=== PATIENT | female | born 1990 | race Caucasian/White ===

== ENCOUNTER → 2019-07-05 10:27 | Outpatient (CLI) | payer MEDICAID, SELFPAY ==
--- NOTE | 2019-07-05 10:29 | CA_ITS ---
APPROVED REPORT Bilateral Lower Extremity Venous Study for DVT. Software Consultant: MIKIE FlanaganT Indications Lower Extremity Pain: Bilateral Lower Extremity Edema: Bilateral Current Smoker REDNESS,PAIN PANTERA CALFS Vein Imaging CFV (R): compressive, spontaneous, phasic, augmentation FEM (R): compressive, spontaneous, phasic, augmentation POP (R): compressive, spontaneous, phasic, augmentation PTV (R): Compressible GSV (R): Compressible Peroneals (R):Compressible GAS (R): Compressible CFV (L): compressive, spontaneous, phasic, augmentation FEM (L): compressive, spontaneous, phasic, augmentation POP (L): compressive, spontaneous, phasic, augmentation PTV (L): Compressible GSV (L): Compressible Peroneals (L):Compressible GAS (L): Compressible Conclusion Study suggests no evidence of DVT of the billateral lower extremities. Study suggests no evidence of SVT of the bilateral lower extremities. Critical Notification Physician Notified Date: 07/05/2019 Time: 11:01 Physician Name: Ahmet's office Electronically signed by : Willard Holden MD 07/05/2019 16:14:42
== END ==
PROVIDERS: PCP Emergency Medicine; Visit Provider Nurse Practitioner Family
DX: M79.605 Pain in left leg (principal); M79.604 Pain in right leg; R60.9 Edema, unspecified
CPT/HCPCS: 93970

== ENCOUNTER 2019-10-07 17:09 | Emergency (ER) | payer MEDICAID, SELFPAY ==
[2019-10-07 17:14] VITALS: BP 134/70; PULSE 84; RESP 16; TEMP 36.8; O2SAT 98; BMI 27.3
[2019-10-07 17:23] VITALS: BP 134/70; PULSE 84; RESP 16; TEMP 36.8; O2SAT 98; BMI 27.3
--- NOTE | 2019-10-07 18:35 | HMH.EDUTC ---
[facility] [place] Impression: Muscle strain Disposition: Home, Self-Care Condition on Discharge: Good Instructions: Muscle Strain, DI for Muscle Strain Additional Instructions: *Etodolac gissell 6 hours with meal as needed for pain/inflammation *Not additional anti-inflammatory like motrin, aleve, advil with the above amount of Etodolac. You can still take Tylenol every 4 hours as needed if you need something else for pain *Ice 20 minutes every 2 hours for the first 48 hours after the initial injury followed by moist heat every 20 minutes 3-4 times a day to affected area Over the counter Muscle rubs may help *Keep this area active, no movement leads to more stiffness, However take it easy and avoid heavy lifting pushing or pulling *Follow up with you family doctor if no improvement for further treatment Return if needed Straight to ER if any life threatening symptoms Prescriptions: Etodolac [Etodolac 200mg Cap*] 200 mg PO Q6H PRN #10 cap PRN Reason: Moderate Pain Transmission Status: Pending to [facility] Referrals: Mahamed Hunter MD [Primary Care Provider] - As needed Time of Disposition: 18:41 Medical Decision Making - Ben Inquiry Pt receiving controlled substance: No Ben was queried for this patient: No Vital Signs: 10/07/19 17:14 10/07/19 17:23 Temperature 98.2 F 98.2 F Temperature Source Oral Oral Pulse Rate [Right] 84 84 Respiratory Rate 16 16 Blood Pressure [Right Arm] 134/70 134/70 Blood Pressure Mean [Right Arm] 91 91 Blood Pressure Source [Right Arm] Automatic Cuff Automatic Cuff Blood Pressure Position [Right Arm] Sitting Sitting 02 Sat by Pulse Oximetry 98 98 Oxygen Delivery Method Room Air Room Air [facility] [place] - General Stated complaint: L side pain, pain under R breast Time Seen by Provider: 10/07/19 18:36 Mode of Arrival: Ambulatory Source of Information: Patient Limitations: No Limitations Description of Symptoms (Recalled from Triage Doc. by RN): Pt c/o left sided pain that has been ongoing for months. 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 she has pain in her left side just below ribs like she has pulled something States that yesterday she unloaded truck and pain started again and has kept her up most of the night and she was unable to work today States that pain is better now but she had to come in to get a note for work - Related Data Home Medications Medication Instructions Recorded Confirmed glecaprevir 100 mg-pibrentasvir 40 3 tab PO DAILY 07/05/19 07/05/19 mg tablet Previous Rx's Medication Instructions Recorded Etodolac [Etodolac 200mg Cap*] 200 mg PO Q6H PRN #10 cap 10/07/19 Allergies Allergy/AdvReac Type Severity Reaction Status Date / Time No Known Allergies Allergy Unverified 07/05/19 09:06 - Worker's Comp Is this a Worker's Comp case?: No [facility] History - Hepatitis A Screen Drug use history?: No High risk sexual behaviors?: No History of sexually transmitted infection?: No Currently employed?: No Childcare worker?: No Do you have indoor plumbing?: Yes Do you have electricity?: Yes Attestation statement:: This patient has been screened for Hepatitis A risk factors. I have reviewed the patient's past medical history: Yes Medical History: Reports:: Hepatitis Denies:: Cancer, Diabetes Mellitus Type 1, Diabetes Mellitus Type 2, Internal Pacemaker, MRSA Laterality Cases: Bilateral: Tonsillectomy Other Surgeries: Yes: Tub
[2019-10-07 18:51] VITALS: BP 134/70; PULSE 84; RESP 16; TEMP 36.8; O2SAT 98
== END 2019-10-07 18:53 | disposition home or self-care (01) ==
PROVIDERS: Emergency Provider Nurse Practitioner; PCP Emergency Medicine
DX: S23.421A Sprain of chondrosternal joint, initial encounter (principal); X50.0XXA Overexertion from strenuous movement or load, initial encounter; Y92.89 Other specified places as the place of occurrence of the external cause; B19.20 Unspecified viral hepatitis C without hepatic coma; F17.210 Nicotine dependence, cigarettes, uncomplicated; F19.11 Other psychoactive substance abuse, in remission; Z90.09 Acquired absence of other part of head and neck
CPT/HCPCS: 99201

== ENCOUNTER → 2019-11-26 14:09 | Outpatient (CLI) | payer MEDICAID, SELFPAY ==
--- NOTE | 2019-11-26 14:16 | MM_ITS ---
PROCEDURE: MM DIG MAMM DX UNILAT RT CAD Digital Breast Tomosynthesis Included CLINICAL INDICATION: RT BREAST LUMP COMPARISON: US US BREAST RT COMPLETE from 11/26/2019 TECHNIQUE: Standard CC and MLO images and 3D Tomosynthesis was obtained. R2 CAD reviewed. FINDINGS: Palpable nodule is reported at the upper inner right breast. A marker is placed at this region. No malignant appearing mass or malignant-appearing microcalcification. Tomogram images do not demonstrate any spur specific abnormality Right breast ultrasound: No cystic or solid lesions evident. IMPRESSION: Unremarkable right-sided mammogram and right breast ultrasound. BI-RAD Category: 1 Negative FOLLOW-UP: Correlation with physical exam is needed. A negative mammogram and negative ultrasound does not exclude the possibility of malignancy. If there is indeed a palpable nodule then, it should be managed on a clinical basis. (A letter has been sent to the patient regarding results of the study.) Dictated by: Willard Holden MD 11/29/2019 11:44 Willard Holden MD in [place] 11/29/2019 11:44
== END ==
PROVIDERS: PCP Emergency Medicine; Visit Provider Physician Assistant
DX: N63.12 Unspecified lump in the right breast, upper inner quadrant (principal)
CPT/HCPCS: 76641; 77061; 77065; G0279

== ENCOUNTER 2019-12-25 13:02 | Emergency (ER) | payer MEDICAID, SELFPAY ==
[2019-12-25 13:16] VITALS: BP 130/85; PULSE 106; RESP 18; TEMP 37.4; O2SAT 99; BMI 27.3
--- NOTE | 2019-12-25 13:21 | HMH.EDUTC ---
[facility] [place] Disposition Clinical Impression: Encounter for laboratory testing for COVID-19 virus Otitis media Qualifiers: Otitis media type: unspecified Laterality: bilateral Qualified Code(s): H66.93 - Otitis media, unspecified, bilateral Disposition: Home, Self-Care Condition on Discharge: Good Instructions: Middle Ear Infection, Amoxicillin Additional Instructions: *Monitor Temp, Over the counter Motrin or Tylenol as directed/as needed Tylenol every 4 hours and Motrin every 6 hours (as long as your family doctor has told you that you can take it) for fever or pain. and straight to ER if unable to lower temp less than 101.0 after medication given *Warm salt water gargles may help to soothe the throat *Throat Lozenges *Warm fluids like tea with honey may help to soothe the throat *Sleep elevated *Humidifier/Vaporizer *Flonase 2 sprays in each nostril daily but be aware that it may take 2-3 days before you notice improvement Follow up IMMEDIATELY for new or worsening symptoms or no Noticeable improvement over the next 48-72 hours. 911 for difficulty breathing or swallowing Take medication as prescribed You was tested for today for COVID19 your test result should be back in the next 24-48 hours, you may call to the [facility] tomorrow to see if your test results are back and the result [phone] You was given a handout with instructions for Self Quarantine and Self isolation for while you wait on test results and what to do if they are positive If you are positive the Health Dept will be contacting you also Prescriptions: Amoxicillin [Amoxicillin 875MG Tab] 875 mg PO Q12H #20 tab Transmission Status: Pending to [facility] Fluticasone Propionate [Flonase 50mcg nasal spray 16gm] 1 spr NS DAILY #1 bottle Transmission Status: Pending to [facility] Referrals: Jonatan Weaver APRN [Primary Care Provider] - As needed Forms: Work/School Release Time of Disposition: 13:35 Medical Decision Making - Ben Inquiry Pt receiving controlled substance: No Ben was queried for this patient: No Vital Signs: 12/25/19 13:16 12/25/19 13:23 Temperature 99.4 F 99.4 F Temperature Source Oral Pulse Rate 106 H Pulse Rate [Left] 106 H Respiratory Rate 18 18 Blood Pressure 130/85 Blood Pressure [Right Arm] 130/85 Blood Pressure Mean [Right Arm] 100 Blood Pressure Source [Right Arm] Automatic Cuff Blood Pressure Position [Right Arm] Sitting 02 Sat by Pulse Oximetry 99 Oxygen Delivery Method Room Air - Lab Data Lab results reviewed: Yes: I reviewed the patient's lab results. Orders (Tests/Meds): ORDERS Category Date Time Status Covid-19 Nasal PCR Sendout [facility] Stat Lab 12/25/19 13:16 Ordered [facility] [place] HPI - General Stated complaint: achy, feels bad Time Seen by Provider: 12/25/19 13:21 Mode of Arrival: Ambulatory Source of Information: Patient Limitations: No Limitations Description of Symptoms (Recalled from Triage Doc. by RN): Body aches, chills, fatigue x 2 days HEENT Symptoms (Recalled from RN notes): No Resp Symptoms (Recalled from RN notes): No Skin Symptoms (Recalled from RN notes): No MS Symptoms (Recalled from RN notes): Yes (fatigue) Functional Status (Recalled from RN notes): stable - History of Present Illness Provider Complaint: Patient states that she has been having body aches, chills, fatigue and pain and pressure in both ears for the last 2-3 days States that she felt like she had a fever all night and today when she got up she was feeling worse so she come in to get checked Denies known exposure to COVID - Related Data Previous Rx's Medication Instructions Recorded Amoxicillin [Amoxicillin 875MG 875 mg PO Q12H #20 tab 12/25/19 Tab] Fluticasone Propionate [Flonase 1 spr NS DAILY #1 bottle 12/25/19 50mcg nasal spray 16gm] Allergies Allergy/AdvReac Type Severity Reaction Status Date / Time No Known Allergies Allergy Verified 12/25/19 13:22 - Worker's
[2019-12-25 13:23] VITALS: BP 130/85; PULSE 106; RESP 18; TEMP 37.4; O2SAT 99
[2019-12-25 20:23] LABS: UTC Influenza A Antigen Negative (Negative)
[2019-12-25 20:24] LABS: UTC Influenza B Antigen Negative (Negative)
[2019-12-26 11:12] LABS: Adenovirus,PCR Not Detected (NotDetected); Bordetella Pertussis Not Detected (NotDetected); Chlamydophila Pneumoniae, PCR Not Detected (NotDetected); Coronavirus 19, PCR Not Detected (NotDetected); Coronavirus 229E Not Detected (NotDetected); Coronavirus NL63 Not Detected (NotDetected); Coronavirus OC43 Not Detected (NotDetected); Coronovirus HKU1,PCR Not Detected (NotDetected); Human Metapneumovirus Not Detected (NotDetected); Influenza A, PCR Not Detected (NotDetected); Influenza AH1, 2009 Not Detected (NotDetected); Influenza AH1, PCR Not Detected (NotDetected); Influenza AH3,PCR Not Detected (NotDetected); Influenza B, PCR Not Detected (NotDetected); Mycoplasma Pneumoniae, PCR Not Detected (NotDetected); Parainfluenza 1, PCR Not Detected (NotDetected); Parainfluenza 2, PCR Not Detected (NotDetected); Parainfluenza 3, PCR Not Detected (NotDetected); Parainfluenza 4, PCR Not Detected (NotDetected); Respiratory Syncytial Virus Not Detected (NotDetected); Rhinovirus/Enterovirus Not Detected (NotDetected)
== END 2019-12-25 14:24 | disposition home or self-care (01) ==
PROVIDERS: Emergency Provider Nurse Practitioner; PCP Nurse Practitioner Family
DX: Z20.828 Contact with and (suspected) exposure to other viral communicable diseases (principal); H66.93 Otitis media, unspecified, bilateral
CPT/HCPCS: 87581; 87633; 87798; 87804; 99202; U0003; U0004

== ENCOUNTER 2020-04-23 09:48 | Emergency (ER) | payer MEDICAID, SELFPAY ==
[2020-04-23 09:48] VITALS: BP 152/89; PULSE 96; RESP 18; TEMP 36.6; O2SAT 100; BMI 26.6
[2020-04-23 09:55] VITALS: BP 152/89; PULSE 96; RESP 18; TEMP 36.6; O2SAT 100; BMI 26.6
--- NOTE | 2020-04-23 10:23 | HMH.EDUTC ---
[facility] – [place] Disposition Clinical Impression: Exposure to COVID-19 virus Otitis media Qualifiers: Otitis media type: unspecified Laterality: right Qualified Code(s): H66.91 - Otitis media, unspecified, right ear Disposition: Home, Self-Care Condition on Discharge: Good Instructions: Middle Ear Infection, DI for Otitis Media (Middle Ear Infection)-Child, Amoxicillin, Fluticasone Nasal [place], DI for COVID-19 (Suspected or Confirmed ) Additional Instructions: *Monitor Temp, Over the counter Motrin or Tylenol as directed/as needed Tylenol every 4 hours and Motrin every 6 hours (as long as your family doctor has told you that you can take it) for fever or pain. and straight to ER if unable to lower temp less than 101.0 after medication given *Warm salt water gargles may help to soothe the throat *Throat Lozenges *Warm fluids like tea with honey may help to soothe the throat *Sleep elevated *Humidifier/Vaporizer *Flonase 2 sprays in each nostril daily but be aware that it may take 2-3 days before you notice improvement Your throat swab was sent for culture. Those results are typically sent to your primary care. Be sure to follow up in 2-3 days with your family doctor/primary care physician if no improvement so they can review those result and treat if necessary. If you don?t have a primary care doctor, I recommend you get one but in the mean time, you will have to return to a walk in clinic Follow up IMMEDIATELY for new or worsening symptoms or no Noticeable improvement over the next 48-72 hours. 911 for difficulty breathing or swallowing You were tested for today for COVID19 your test result should be back in the next 24-48 hours, you may call to the [facility] to see if your test results are back in the next 48 hours [phone] [facility] hours are 9am-9pm You was given a handout with instructions for Self Quarantine and Self isolation for while you wait on test results and what to do if they are positive If you are positive the Health Dept will be contacting you also Prescriptions: Amoxicillin [Amoxicillin 875MG Tab] 875 mg PO Q12H #20 tab Transmission Status: Pending to [facility] Fluticasone Propionate [Flonase 50mcg nasal spray 16gm] 1 spr NS DAILY #1 bottle Transmission Status: Pending to [facility] Referrals: Mahamed Hunter MD [Primary Care Provider] - As needed Forms: Work/School Release Time of Disposition: 10:30 Medical Decision Making - Ben Inquiry Pt receiving controlled substance: No Ben was queried for this patient: No Vital Signs: 04/23/20 09:48 04/23/20 09:55 Temperature 97.8 F 97.8 F Temperature Source Oral Oral Pulse Rate [Left Radial] 96 H 96 H Respiratory Rate 18 18 Blood Pressure [Right Arm] 152/89 H 152/89 H Blood Pressure Mean [Right Arm] 110 110 Blood Pressure Source [Right Arm] Automatic Cuff Automatic Cuff Blood Pressure Position [Right Arm] Sitting Sitting 02 Sat by Pulse Oximetry 100 100 Oxygen Delivery Method Room Air Room Air - Lab Data Lab results reviewed: Yes: I reviewed the patient's lab results. Lab Results 04/23/20 10:26: Strep Scn Rapid Clinic Negative Orders (Tests/Meds): ORDERS Category Date Time Status Covid-19 Nasal PCR ([facility]) Routine Lab 04/23/20 10:26 Ordered Strep Screen Confirmation Stat Micro 04/23/20 10:26 Received [facility] [place] HPI - General Stated complaint: covid exposes, headache and sore throat Time Seen by Provider: 04/23/20 10:23 Mode of Arrival: Ambulatory Source of Information: Patient Limitations: No Limitations Description of Symptoms (Recalled from Triage Doc. by RN): PATIENT C/O HEADACHE SINCE TUESDAY AND SORE THROAT SINCE YESTERDAY. REPORTS EXPOSURE TO COVID HEENT Symptoms (Recalled from RN notes): Yes Resp Symptoms (Recalled from RN notes): No Skin Symptoms (Recalled from RN notes): No MS Symptoms (Recalled from RN notes): No Functional Status (Recalled from RN notes): WNL - History of Present Illness Provider Complaint:
[2020-04-23 10:28] LABS: UTC Strep Screen (Rapid) Negative (Negative)
[2020-04-23 10:33] VITALS: BP 152/89; PULSE 96; RESP 18; TEMP 36.6; O2SAT 100
== END 2020-04-23 10:36 | disposition home or self-care (01) ==
PROVIDERS: Emergency Provider Nurse Practitioner; PCP Emergency Medicine
DX: Z20.822 Contact with and (suspected) exposure to COVID-19 (principal); H66.91 Otitis media, unspecified, right ear; F19.11 Other psychoactive substance abuse, in remission
CPT/HCPCS: 87880; 99202; G0463; U0003

== ENCOUNTER → 2020-05-20 10:16 | Outpatient (CLI) | payer MEDICAID, SELFPAY ==
--- NOTE | 2020-05-20 10:21 | XR_ITS ---
PROCEDURE: XR CHEST 2V CLINICAL HISTORY: tob use/chest pain COMPARISON: No exams were available for comparison FINDINGS: The cardiomediastinal silhouette and pulmonary vascularity are within normal limits. The lungs are clear without infiltrates, suspicious nodules, or pleural effusions. No acute bony abnormalities. IMPRESSION: No acute findings. Dictated by: Willard Holden MD 05/20/2020 12:42 Willard Holden MD in [place] 05/20/2020 12:42
[2020-05-20 11:25] LABS: Basophils % 0.5 % (0.1-2.0); Eosinophils # 0.1 K/mm3 (0.0-0.4); Eosinophils % 1.8 % (0.1-12.0); Hematocrit 43.8 % (37.0-47.0); Hemoglobin 14.8 g/dL (12.2-16.2); Lymphocytes # 2.4 K/mm3 (0.7-4.5); Lymphocytes % 37.9 % (10-50); Mean Corpuscular HGB Conc 33.7 g/dL (31.8-35.4); Mean Corpuscular Hemoglobin 32.2 pg (27.0-31.2); Mean Corpuscular Volume 95.6 fl (81-99); Mean Platelet Volume 7.6 fl (7.4-10.4); Monocytes # 0.3 K/mm3 (0.1-1.0); Monocytes % 4.8 % (1.7-9.3); Neutrophils # 3.5 K/mm3 (1.8-7.8); Neutrophils % 55.1 % (37.0-80.0); Platelet Count 247 K/mm3 (142-424); Red Blood Count 4.58 M/mm3 (4.20-5.40); Red Cell Distribution Width 13.4 % (11.5-17.5); White Blood Count 6.4 K/mm3 (4.8-10.8)
[2020-05-20 12:05] LABS: Alanine Aminotransferase 16 U/L (12-78); Albumin Level 4.5 g/dl (3.5-5.0); Alkaline Phosphatase 73 U/L (38-126); Aspartate Amino Transferase 23 U/L (14-36); Bilirubin,Indirect 0.6 mg/dL (0.0-0.9); Bilirubin,Total 0.6 mg/dl (0.2-1.3); Bilirubin,Unconjugated 0.6 mg/dL (0.0-1.1); Blood Urea Nitrogen 14 mg/dl (7-17); Calcium 9.7 mg/dl (8.4-10.2); Carbon Dioxide 24 mmol/L (22.0-30.0); Chloride 108 mmol/L (98-107); Chol/HDL Ratio 3.5 (1-3.5); Cholesterol 230 mg/dl (140-200); Estimated Glomerular Filt Rate 117 ml/min (>60); GFR (African American) 141 ML/MIN (>60); Glucose 82 mg/dl (74-100); HDL Cholesterol 65 mg/dl (40-60); Sodium 138 mmol/L (136-145); Total Protein,Serum 7.5 g/dl (6.3-8.2); Triglycerides 77 mg/dl (30-150); VLDL Cholesterol 15 mg/dL (0-40)
[2020-05-20 12:15] LABS: Direct LDL Cholesterol 127.61 mg/dL (100-129)
[2020-05-20 12:22] LABS: Free T4 (Free Thyroxine) 1.04 ng/dl (0.78-2.19)
[2020-05-20 12:38] LABS: Thyroid Stimulating Hormone 0.71 uIU/mL (0.465-4.68)
== END ==
PROVIDERS: PCP Emergency Medicine; Visit Provider Urology
DX: R07.89 Other chest pain (principal); R42 Dizziness and giddiness; R53.83 Other fatigue; Z72.0 Tobacco use; Z86.19 Personal history of other infectious and parasitic diseases
CPT/HCPCS: 36415; 71046; 80048; 80061; 80076; 84439; 84443; 85025

== ENCOUNTER → 2020-06-02 07:54 | Outpatient (CLI) | payer MEDICAID, SELFPAY ==
--- NOTE | 2020-06-02 07:55 | CA_ITS ---
APPROVED REPORT Exam: Exercise Treadmill Technologist: Eli Saleh, Ht: 5 ft 9 in Wt: 190 lbs BSA: 2.02 m2 HR: 76 bpm BP: 118/78 mmHg Medical History Medications: Escitalopram,,,,, Stress Test Details Test: David HR Resting HR: 73 bpm Max Heart Rate (APMHR): 189.123152 bpm Max HR Achieved: 169 bpm Target HR (85% APMHR): 160.040209 bpm % of APMHR: 89.42 Recovery HR: 887 bpm BP Resting BP: 122/78 mmHg Max BP: 185/91 mmHg Recovery BP: 138.0/81.0 mmHg ECG Resting ECG: NSR, NSSTT Abnormalities Inferiorly Clinical Reason for Termination: Reason For Ending: symptomatic dizziness Exercise duration: 07:48 min Highest Stage Achieved: Exercise capacity: 10.1 METs Stress ECG Conclusion Pt exercised 0748 minutes on David protocol. Stopped abruptly at 7:48 min due to symptomatic dizziness. No CP or arrythmias. Max HR 169 MET's 10.1 Max BP 185/91 Symptoms: Dizziness No CP Arrhythmias/Ectopy: One isolated PVC ST-T Changes: Baseline Inferior STT adnormalities exacerbated during stress. Conclusion: Abnormal, non-diagnostic stress test due to baseline EKG abnormalities. See above. Test Summary REST . . . . . . . Sitting REST . . . . . . . Standing REST 07:20 0.0 1.2 73 . 122/ 78 . . Stage 1 01:00 10.0 1.7 107 . . . . Stage 1 02:00 10.0 1.7 122 . . . . Stage 1 03:00 10.0 1.7 122 . 122/ 82 . . Stage 2 01:00 12.0 2.5 129 . . . . Stage 2 02:00 12.0 2.5 141 . . . . Stage 2 03:00 12.0 2.5 147 . 138/ 90 . . Stage 3 01:00 14.0 3.4 159 . . . . Stage 3 01:48 0.0 0.0 168 . . . Stop exercise at 07:48 RECOVERY 01:00 0.0 0.0 139 . . . . RECOVERY 02:00 0.0 0.0 110 . 185/ 91 . . RECOVERY 03:00 0.0 0.0 88 . 185/ 91 . . RECOVERY 04:00 0.0 0.0 96 . 141/ 74 . . RECOVERY 05:00 0.0 0.0 88 . 138/ 81 . . RECOVERY 06:00 0.0 0.0 83 . 138/ 81 . . RECOVERY 07:00 0.0 0.0 86 . 138/ 81 . . RECOVERY 08:00 0.0 0.0 85 . 138/ 81 . . RECOVERY 09:00 0.0 0.0 81 . 138/ 81 . . RECOVERY 10:00 0.0 0.0 78 . 138/ 81 . . RECOVERY 11:00 0.0 0.0 0 . 138/ 81 . . RECOVERY 12:00 0.0 0.0 0 . 138/ 81 . . RECOVERY 12:12 0.0 0.0 0 . 138/ 81 . . Electronically signed by : Italo Mahoney, 06/02/2020 20:59:03
--- NOTE | 2020-06-02 07:55 | CA_ITS ---
APPROVED REPORT EXAM: Comprehensive 2D, Doppler, and color-flow Echocardiogram Driver Utility Worker: NI Patel, RVS Ht: 5 ft 9 in Wt: 190lbs BSA: 2.02 BP: 117/81 mmHg Indications: Hep-c, dizziness, Hx-IV drug abuse 2D Dimensions Aortic Root 2.50 cm Left Atrium 2.50 cm LVOT 1.90 cm (M/F) 1.5-2.5 M-Mode Dimensions RVDd 1.50 cm (0.9-2.6) LVDd 4.30 cm (3.5-5.7) LVDs 2.90 cm (3.5-5.7) IVSd 0.90 cm (0.6-1.1) PWd 0.90 cm (0.6-1.1) EF (Teich) 61.30% EPSs 0.60 cm FS 32.60% EDV (Teich) 83.10 mL ESV (Teich) 32.20 mL LV Diastology MED E' 11.50 (< 7 cm/sec) LAT E' 17.20 (<10 cm/sec) Aortic Valve LVOT Max 125.00 (70-110 cm/s) LVOT VTI 27.30 cm AoV Peak Ron. 132.00 (50-130 cm/s) AO Peak GR. 7.00 mmHg Pulmonary Valve PV Peak Velocity 80.90 (50-150 cm/s) PA Accel Time 141.00 (>120 msec) Tricuspid Valve TV Vmax 209.00 (30-100 cm/s) Left Ventricle Left atrium is normal size, left ventricle is normal size, visually estimated ejection fraction 55% with no regional wall motion abnormality, diastolic parameters are within normal range. Right Ventricle Right atrium and right ventricle are normal size and contractility. Aortic Valve Aortic valve is grossly normal, there is no aortic stenosis or aortic insufficiency. Mitral Valve Mitral valve is grossly normal, there is trace mitral regurgitation. Tricuspid Valve Tricuspid grossly normal, there is trace tricuspid regurgitation, tricuspid regurgitation jet velocity is inadequate for calculation of the right ventricular systolic pressure. Pulmonic Valve Pulmonic valve is poorly visualized. Great Vessels Aortic root is normal size. Pericardium No significant pericardial effusion noted. Conclusion 1. Normal left ventricular size, preserved left ventricular systolic function, visually estimated ejection fraction 55% with no regional wall motion abnormality, diastolic parameters are within normal range. 2. Trace mitral and tricuspid regurgitation. 3. No significant pericardial effusion noted. Electronically signed by : Italo Mahoney, 06/02/2020 09:46:04
== END ==
PROVIDERS: PCP Emergency Medicine; Visit Provider Urology
DX: R07.89 Other chest pain (principal); Z72.0 Tobacco use
CPT/HCPCS: 93017; 93306

== ENCOUNTER → 2020-06-12 14:29 | Outpatient (CLI) | payer MEDICAID, SELFPAY | PROVIDERS: PCP Nurse Practitioner Family; Visit Provider Nurse Practitioner Family | DX: R07.9 Chest pain, unspecified (principal); R42 Dizziness and giddiness | CPT/HCPCS: 93225; 93226 ==

== ENCOUNTER → 2020-06-25 10:18 | Outpatient (CLI) | payer MEDICAID, SELFPAY ==
--- NOTE | 2020-06-25 10:19 | CA_ITS ---
APPROVED REPORT Senior Web Architect: KADEEM Laterality: Bilateral Indications: dizzy Risk Factors Smoking Doppler Spectral Velocity Analysis ECA (R) 104.00/26.00 cm/s ECA (L) 94.40/22.20 cm/s dICA (R) 130.50/62.00 cm/s dICA (L) 96.10/39.70 cm/s Eboni (R) 97.30/46.00 cm/s Eboni (L) 120.80/54.50 cm/s pICA (R) 94.30/38.20 cm/s pICA (L) 118.70/42.80 cm/s dCCA (R) 127.00/31.70 cm/s dCCA (L) 115.50/24.60 cm/s pCCA (R) 161.10/31.70 cm/s pCCA (L) 128.30/24.60 cm/s Vert (R) 73.80/13.90 cm/s Vert (L) 51.00/14.40 cm/s ICA/CCA 1.03 ICA/CCA 1.05 Findings Duplex evaluation demonstrates stenosis of the right proximal internal carotid artery <20% with PSV <140 cm/sec, EDV <100 cm/sec, and IC/CC Ratio <4.0. Duplex evaluation demonstrates stenosis of the left proximal internal carotid artery <20% with PSV <140 cm/sec, EDV <100 cm/sec, and IC/CC Ratio <4.0. Conclusion Duplex evaluation demonstrates stenosis of the right proximal internal carotid artery <20% with PSV <140 cm/sec, EDV <100 cm/sec, and IC/CC Ratio <4.0. Duplex evaluation demonstrates stenosis of the left proximal internal carotid artery <20% with PSV <140 cm/sec, EDV <100 cm/sec, and IC/CC Ratio <4.0. Electronically signed by : Tricia Castellanos, 06/26/2020 16:50:43
== END ==
PROVIDERS: PCP Nurse Practitioner Family; Visit Provider Nurse Practitioner Family
DX: R42 Dizziness and giddiness (principal)
CPT/HCPCS: 93880

== ENCOUNTER 2020-07-21 17:41 | Emergency (ER) | payer MEDICAID, SELFPAY ==
[2020-07-21 18:05] VITALS: BP 143/76; PULSE 104; RESP 19; TEMP 37.1; O2SAT 98; BMI 31.1
--- NOTE | 2020-07-21 18:25 | HMH.EDUTC ---
[facility] [place] Disposition Clinical Impression: Sinusitis Qualifiers: Sinusitis location: unspecified location Chronicity: unspecified Qualified Code(s): J32.9 - Chronic sinusitis, unspecified Disposition: Home, Self-Care Condition on Discharge: Good Instructions: Sinusitis, DI for Sinusitis, Amoxicillin and Clavulanic Acid Additional Instructions: *Monitor Temp, Over the counter Motrin or Tylenol as directed/as needed Tylenol every 4 hours and Motrin every 6 hours (as long as your family doctor has told you that you can take it) for fever or pain. and straight to ER if unable to lower temp less than 101.0 after medication given *Warm salt water gargles may help to soothe the throat *Throat Lozenges *Warm fluids like tea with honey may help to soothe the throat *Sleep elevated *Humidifier/Vaporizer *Flonase 2 sprays in each nostril daily but be aware that it may take 2-3 days before you notice improvement Follow up IMMEDIATELY for new or worsening symptoms or no Noticeable improvement over the next 48-72 hours. 911 for difficulty breathing or swallowing You were tested for today for COVID19 your test result should be back in the next 24-48 hours, you may call to the [facility] to see if your test results are back in the next 48 hours [phone] [facility] hours are 9am-9pm You was given a handout with instructions for Self Quarantine and Self isolation for while you wait on test results and what to do if they are positive If you are positive the Health Dept will be contacting you also Prescriptions: Amoxicillin/Potassium Clav [Augmentin 875-125 Tablet] 1 tab PO Q12H 7 Days #14 tab Transmission Status: Pending to [facility] Fluticasone Propionate [Flonase 50mcg nasal spray 16gm] 1 spr NS DAILY #1 bottle Transmission Status: Pending to [facility] Referrals: Jonatan Weaver APRN [Primary Care Provider] - As needed Time of Disposition: 18:52 Medical Decision Making - Ben Inquiry Pt receiving controlled substance: No Ben was queried for this patient: No Vital Signs: 07/21/20 18:05 Temperature 98.8 F Temperature Source Oral Pulse Rate [Right] 104 H Respiratory Rate 19 Blood Pressure [Right Arm] 143/76 H Blood Pressure Mean [Right Arm] 98 02 Sat by Pulse Oximetry 98 Orders (Tests/Meds): ORDERS Category Date Time Status Covid-19 Nasal PCR ([facility]) Routine Lab 07/21/20 18:44 Ordered [facility] HPI - General Stated complaint: sick.cough,GUTHRIE Time Seen by Provider: 07/21/20 18:25 Mode of Arrival: Ambulatory Source of Information: Patient Limitations: No Limitations Description of Symptoms (Recalled from Triage Doc. by RN): pt c/o cought, chest and head congestion, and a GUTHRIE for 5 days. HEENT Symptoms (Recalled from RN notes): Yes (sinus congestion and GUTHRIE) Resp Symptoms (Recalled from RN notes): Yes (cough and chestt) Skin Symptoms (Recalled from RN notes): No MS Symptoms (Recalled from RN notes): No Functional Status (Recalled from RN notes): na - History of Present Illness Provider Complaint: Patient states that she has been battling with her sinuses for over a week and for the last 5 days it has continued to get worse State that she is having sinus pain and pressure behind her eyes and upper teeth along with cough and headache State that she feels like it is trying to move into her chest - Related Data Home Medications Medication Instructions Recorded Confirmed escitalopram oxalate 10 mg tablet 10 mg PO DAILY tab 05/20/20 07/07/20 Previous Rx's Medication Instructions Recorded labetalol 100 mg tablet 100 mg PO DAILY #30 tab 07/03/20 Amoxicillin/Potassium Clav 1 tab PO Q12H 7 Days #14 tab 07/21/20 [Augmentin 875-125 Tablet] Fluticasone Propionate [Flonase 1 spr NS DAILY #1 bottle 07/21/20 50mcg nasal spray 16gm] Allergies Allergy/AdvReac Type Severity Reaction Status Date / Time No Known Allergies Allergy Verified 07/21/20 18:09 - Worker's Comp Is this a Worker's Comp becca
[2020-07-21 18:56] VITALS: BP 143/76; PULSE 104; RESP 19; TEMP 37.1
== END 2020-07-21 18:58 | disposition home or self-care (01) ==
PROVIDERS: Emergency Provider Nurse Practitioner; PCP Nurse Practitioner Family
DX: J32.9 Chronic sinusitis, unspecified (principal); F33.1 Major depressive disorder, recurrent, moderate; R00.2 Palpitations
CPT/HCPCS: 99202; G0463; U0003

== ENCOUNTER 2020-10-27 09:33 | Emergency (ER) | payer MEDICAID, SELFPAY ==
[2020-10-27 09:40] VITALS: BP 139/93; PULSE 87; RESP 18; TEMP 36.6; O2SAT 97; BMI 25.7
--- NOTE | 2020-10-27 10:27 | HMH.EDUTC ---
[facility] [place] Disposition Clinical Impression: Rock infected Disposition: Home, Self-Care Condition on Discharge: Good Instructions: Calluses and Corns, DI for Calluses and Corns, Mupirocin Additional Instructions: Topical antibiotic cream as prescribed on the area Make sure to place Cotton ball between toes to help relieve pressure Over the counter Motrin if needed for pain if you cannot take it you may use Tylenol Soak the area several times daily, pat dry then apply medication Return or follow up with your Family Doctor if no improvement Follow up with Podiatry if needed Straight to ER if any life threatening symptoms Prescriptions: Mupirocin Calcium [Mupirocin 2% Cream 15gm] 1 applicatio TP BID #15 g Transmission Status: Pending to [facility] Referrals: Mahamed Hunter MD [Primary Care Provider] - As needed Angelique Lopez DPM [Staff Physician] - Citlaly Lane APRN [Nurse Practitioner] - Time of Disposition: 10:37 Medical Decision Making - Ben Inquiry Pt receiving controlled substance: No Ben was queried for this patient: No Vital Signs: 10/27/20 09:40 Temperature 97.8 F Temperature Source Oral Pulse Rate [Right Brachial] 87 Respiratory Rate 18 Blood Pressure [Left Arm] 139/93 H Blood Pressure Mean [Left Arm] 108 Blood Pressure Source [Left Arm] Automatic Cuff Blood Pressure Position [Left Arm] Sitting 02 Sat by Pulse Oximetry 97 Oxygen Delivery Method Room Air [facility] [place] HPI - General Stated complaint: toes on right foot painful, no accident Time Seen by Provider: 10/27/20 10:28 Mode of Arrival: Ambulatory Source of Information: Patient Limitations: No Limitations Description of Symptoms (Recalled from Triage Doc. by RN): PATIENT C/O SORE AREA TO INSIDE OF RIGHT PINKY TOE X 1 MONTH, HAS GOTTEN WORSE OVER PAST FEW DAYS HEENT Symptoms (Recalled from RN notes): No Resp Symptoms (Recalled from RN notes): No Skin Symptoms (Recalled from RN notes): Yes MS Symptoms (Recalled from RN notes): No Functional Status (Recalled from RN notes): WNL - History of Present Illness Provider Complaint: Patient states that she has had a place on the inside of her little toe that is rubbing against her 4th toe and making it worse States that she thought it was a corn and has tried several over the counter medications but nothing has worked and now she thinks it may be infected State that it is sore and looking red and warm so she came in to get it checked - Related Data Home Medications Medication Instructions Recorded Confirmed escitalopram oxalate 10 mg tablet 10 mg PO DAILY tab 05/20/20 07/07/20 Previous Rx's Medication Instructions Recorded Amoxicillin/Potassium Clav 1 tab PO Q12H 7 Days #14 tab 07/21/20 [Augmentin 875-125 Tablet] Fluticasone Propionate [Flonase 1 spr NS DAILY #1 bottle 07/21/20 50mcg nasal spray 16gm] labetalol 100 mg tablet 100 mg PO DAILY #30 tab 08/05/20 Mupirocin Calcium [Mupirocin 2% 1 applicatio TP BID #15 g 10/27/20 Cream 15gm] Allergies Allergy/AdvReac Type Severity Reaction Status Date / Time No Known Allergies Allergy Verified 07/21/20 18:09 - Worker's Comp Is this a Worker's Comp case?: No [facility] History - Hepatitis A Screen Drug use history?: No High risk sexual behaviors?: No History of sexually transmitted infection?: No Currently employed?: No Childcare worker?: No Do you have indoor plumbing?: Yes Do you have electricity?: Yes Attestation statement:: This patient has been screened for Hepatitis A risk factors. I have reviewed the patient's past medical history: Yes Medical History: Reports:: Depression, Hepatitis, Palpitations Denies:: Cancer, Diabetes Mellitus Type 1, Diabetes Mellitus Type 2, Internal Pacemaker, MRSA Laterality Cases: Bilateral: Tonsillectomy Other Surgeries: Yes: Tubal Ligation. No: Pacemaker Amputation: No Fractures: No - Social History Smoking Status: Former smoker Tobacco Type: e-cigarettes # Packs/
[2020-10-27 10:50] VITALS: BP 139/93; PULSE 87; RESP 18; TEMP 36.6; O2SAT 97
== END 2020-10-27 10:52 | disposition home or self-care (01) ==
PROVIDERS: Emergency Provider Nurse Practitioner; PCP Emergency Medicine
DX: M79.674 Pain in right toe(s) (principal); L84 Corns and callosities; F17.290 Nicotine dependence, other tobacco product, uncomplicated; F33.1 Major depressive disorder, recurrent, moderate; Z87.891 Personal history of nicotine dependence
CPT/HCPCS: 99202; G0463

== ENCOUNTER 2021-02-21 15:07 | Emergency (ER) | payer MEDICAID, SELFPAY ==
--- NOTE | 2021-02-21 15:23 | XR_ITS ---
PROCEDURE INFORMATION: Exam: XR Chest Exam date and time: 02/21/2021 3:23 PM Age: 31 years old Clinical indication: Tachypnea; Additional info: Palpitations TECHNIQUE: Imaging protocol: XR of the chest. Views: 1 view. COMPARISON: CR XR CHEST 2V 05/20/2020 10:58 AM FINDINGS: Airway: Patent Lungs: Questionable ground-glass opacifications in the bilateral lung bases. Remainder of the lungs are clear. Pleural spaces: Unremarkable. No pleural effusion. No pneumothorax. Heart/Mediastinum: Unremarkable. No cardiomegaly. Bones/joints: No acute skeletal abnormality or aggressive osseous lesion. IMPRESSION: Bilateral lung base findings may be related to superimposition of soft tissues versus developing acute airspace disease in the appropriate clinical setting.
--- NOTE | 2021-02-21 15:24 | HMH.EDGENADL ---
ED Disposition Clinical Impression: Palpitations Disposition: Home, Self-Care Condition on Discharge: Good Instructions: DI for Palpitations Additional Instructions: You have been evaluated for about palpitations. Please take labetalol as prescribed. Try to avoid excess caffeine and tobacco. Follow-up with your primary care doctor as well as cardiology, Dr. Anton. Return to the emergency department for any new or worsening symptoms, chest pain, shortness of breath, other concerns. Prescriptions: Labetalol HCl 100 mg PO DAILY #30 tab Transmission Status: Received by [facility] Referrals: Mahamed Hunter MD [Primary Care Provider] - Mandeep Anton MD [Staff Physician] - Time of Disposition: 16:37 - Critical Care Critical Care Time: No Attestation: On , the high probability of a clinically significant, sudden or life threatening deterioration of the following system(s) required my full and direct attention, intervention and personal management. The time I documented below is in addition to time spent performing reported procedures but includes the following listed in this critical care notation. Medical Decision Making - Medical Records Medical records reviewed: Yes: I reviewed the patient's medical records. - Ben Inquiry Pt receiving controlled substance: No Vital Signs: 02/21/21 15:41 Temperature 98.9 F Temperature Source Oral Pulse Rate [Left Radial] 105 H Respiratory Rate 21 Blood Pressure [Right Arm] 158/99 H Blood Pressure Mean [Right Arm] 118 02 Sat by Pulse Oximetry 99 Oxygen Delivery Method Room Air - Lab Data Lab Results 02/21/21 15:40: WBC 9.1, RBC 4.52, Hgb 14.9, Hct 44.8, MCV 99.2 H, MCH 33.0 H, MCHC 33.2, RDW 13.6, Plt Count 265, MPV 8.8, Neut % (Auto) 60.2, Lymph % (Auto) 34.3, [place] % (Auto) 3.1, Eos % (Auto) 1.0, Baso % (Auto) 1.4, Neut # (Auto) 5.5, Lymph # (Auto) 3.1, [place] # (Auto) 0.3, Eos # (Auto) 0.1, Baso # (Auto) 0.1 02/21/21 15:40: Sodium 138, Potassium 3.6, Chloride 106, Carbon Dioxide 25, Anion Gap 10.6, BUN 15, Creatinine 0.60, Estimated Creat Clear 193, Estimated GFR 116, Est GFR ( Amer) 140, Glucose 98, Calcium 9.6, Phosphorus 3.2, Magnesium 1.6, Total Bilirubin 0.7, AST 31, ALT 20, Alkaline Phosphatase 79, Troponin I < 0.01, Total Protein 7.7, Albumin 4.6, Globulin 3.1, Albumin/Globulin Ratio 1.5, TSH 0.57 02/21/21 15:40: Serum HCG, Qual Negative Result diagrams: 02/21/21 15:40 02/21/21 15:40 Orders (Tests/Meds): ED MEDICATIONS Discontinued Medications Generic Name Dose Route Start Last Admin Trade Name Freq PRN Reason Stop Dose Admin Aspirin 325 mg 02/21/21 15:23 02/21/21 15:51 Aspirin 325mg Tablet PO 02/21/21 15:24 325 mg ONCE ONE Administration ORDERS Category Date Time Status Troponin I Q3H Lab 02/21/21 18:30 Ordered Troponin I Q3H Lab 02/21/21 21:30 Ordered - ECG Data Tracing #1 Sinus rhythm with ventricular rate of 85 bpm. QRS 80, QTc 442. Sinus arrhythmia present. No ST segment changes. - ROXI Score for Non-Stemi Age of Patient: 30-39 years old Heart Rate: 90-109 bpm Systolic Blood Pressure: 140-159 mmHg Serum Creatinine: 0.40-0.79 mg/dl CHF [place] Class: I-No CHF Other Risk Factors: None Non-Stemi Risk Score: 51 Medical Decision Narrative: In summary this is a previously healthy 31-year-old female presenting to the emergency department palpitations. Patient clinically stable on arrival. Vital signs within normal limits. Differential diagnoses are broad including premature atrial contractions, premature ventricular contractions, anemia, glucose abnormality, electrolyte derangement. Cannot exclude ACS. Will obtain CBC, CMP, chest x-ray, EKG, troponin profile, magnesium level, TSH. EKG shows sinus rhythm with sinus arrhythmia. There are no ST segment changes. Initial laboratory results are reassuring. Glucose and electrolytes within normal limits. Troponin undetectable.
--- NOTE | 2021-02-21 15:30 | ECG_ITS ---
APPROVED REPORT Exam: Resting ECG HR:85 bpm ECG Measurements Heart Rate 85 AXES OH 118 P 63 QRSd 80 QRS 65 QT 372 T 5 QTc 442 Conclusion Normal sinus rhythm with sinus arrhythmia Nonspecific ST abnormality Abnormal ECG Electronically signed by : Ezequiel Robertson MD 02/26/2021 13:54:14
[2021-02-21 15:40] VITALS: BMI 30.4
[2021-02-21 15:41] VITALS: BP 158/99; PULSE 105; RESP 21; TEMP 37.2; O2SAT 99; BMI 30.4
[2021-02-21 15:53] LABS: Basophils # 0.1 K/mm3 (0-0.2); Basophils % 1.4 % (0.1-2.0); Eosinophils # 0.1 K/mm3 (0.0-0.4); Hematocrit 44.8 % (37.0-47.0); Hemoglobin 14.9 g/dL (12.2-16.2); Lymphocytes # 3.1 K/mm3 (0.7-4.5); Lymphocytes % 34.3 % (10-50); Mean Corpuscular HGB Conc 33.2 g/dL (31.8-35.4); Mean Corpuscular Volume 99.2 fl (81-99); Mean Platelet Volume 8.8 fl (7.4-10.4); Monocytes # 0.3 K/mm3 (0.1-1.0); Monocytes % 3.1 % (1.7-9.3); Neutrophils # 5.5 K/mm3 (1.8-7.8); Neutrophils % 60.2 % (37.0-80.0); Platelet Count 265 K/mm3 (142-424); Red Blood Count 4.52 M/mm3 (4.20-5.40); Red Cell Distribution Width 13.6 % (11.5-17.5); White Blood Count 9.1 K/mm3 (4.8-10.8)
[2021-02-21 16:01] LABS: Alanine Aminotransferase 20 U/L (12-78); Albumin Level 4.6 g/dl (3.5-5.0); Albumin/Globulin Ratio 1.5 (1.1-1.8); Alkaline Phosphatase 79 U/L (38-126); Anion Gap 10.6 mEq/L (5-15); Aspartate Amino Transferase 31 U/L (14-36); Bilirubin,Total 0.7 mg/dl (0.2-1.3); Blood Urea Nitrogen 15 mg/dl (7-17); Calcium 9.6 mg/dl (8.4-10.2); Carbon Dioxide 25 mmol/L (22.0-30.0); Chloride 106 mmol/L (98-107); Creatinine Clearance Estimated 193 mL/min (50-200); Estimated Glomerular Filt Rate 116 ml/min (>60); GFR (African American) 140 ML/MIN (>60); Globulin 3.1 g/dL (1.3-3.2); Glucose 98 mg/dl (74-100); Magnesium 1.6 mg/dl (1.6-2.3); Phosphorous 3.2 mg/dl (2.5-4.5); Potassium 3.6 mmoL/L (3.5-5.1); Sodium 138 mmol/L (136-145); Total Protein,Serum 7.7 g/dl (6.3-8.2)
[2021-02-21 16:06] LABS: HCG Qualitative, Serum Negative (Negative)
[2021-02-21 16:21] LABS: Troponin I < 0.01 ng/ml (0.00-0.034)
[2021-02-21 16:31] LABS: Thyroid Stimulating Hormone 0.57 uIU/mL (0.465-4.68)
[2021-02-21 17:36] VITALS: BP 128/82; PULSE 79; RESP 13; TEMP 37.2; O2SAT 99
== END 2021-02-21 17:44 | disposition home or self-care (01) ==
PROVIDERS: Emergency Provider Emergency Medicine; PCP Emergency Medicine
DX: R42 Dizziness and giddiness (principal); R00.2 Palpitations; F33.1 Major depressive disorder, recurrent, moderate; F17.210 Nicotine dependence, cigarettes, uncomplicated
CPT/HCPCS: 71045; 80053; 83735; 84100; 84443; 84484; 84703; 85025; 93005; 99281

== ENCOUNTER 2021-04-03 10:18 | Emergency (ER) | payer MEDICAID, SELFPAY ==
[2021-04-03 10:50] VITALS: BP 128/91; PULSE 86; RESP 19; TEMP 36.8; O2SAT 100; BMI 31.0
--- NOTE | 2021-04-03 11:13 | HMH.EDUTC ---
[facility] [place] Disposition Clinical Impression: Otitis media Qualifiers: Otitis media type: unspecified Laterality: right Qualified Code(s): H66.91 - Otitis media, unspecified, right ear Disposition: Home, Self-Care Condition on Discharge: Good Instructions: Middle Ear Infection, Amoxicillin Additional Instructions: *Monitor Temp, Over the counter Motrin or Tylenol as directed/as needed Tylenol every 4 hours and Motrin every 6 hours (as long as your family doctor has told you that you can take it) for fever or pain. and straight to ER if unable to lower temp less than 101.0 after medication given *Warm salt water gargles may help to soothe the throat *Throat Lozenges *Warm fluids like tea with honey may help to soothe the throat *Sleep elevated *Humidifier/Vaporizer *Flonase 2 sprays in each nostril daily but be aware that it may take 2-3 days before you notice improvement Follow up IMMEDIATELY for new or worsening symptoms or no Noticeable improvement over the next 48-72 hours. 911 for difficulty breathing or swallowing Prescriptions: Amoxicillin [Amoxicillin 875MG Tab] 875 mg PO Q12H #20 tab Transmission Status: Pending to [facility] Fluticasone Propionate [Flonase 50mcg nasal spray 16gm] 1 spr NS DAILY #1 each Transmission Status: Pending to [facility] Referrals: Jonatan Weaver APRN [Primary Care Provider] - As needed Time of Disposition: 11:24 Medical Decision Making - Ben Inquiry Pt receiving controlled substance: No Ben was queried for this patient: No Vital Signs: 04/03/21 10:50 Temperature 98.3 F Temperature Source Oral Pulse Rate [Right Brachial] 86 Respiratory Rate 19 Blood Pressure [Right Arm] 128/91 H Blood Pressure Mean [Right Arm] 103 Blood Pressure Source [Right Arm] Automatic Cuff Blood Pressure Position [Right Arm] Sitting 02 Sat by Pulse Oximetry 100 Oxygen Delivery Method Room Air [facility] [place] HPI - General Stated complaint: rt ear pain, GUTHRIE Time Seen by Provider: 04/03/21 11:13 Mode of Arrival: Ambulatory Source of Information: Patient Limitations: No Limitations Description of Symptoms (Recalled from Triage Doc. by RN): PATIENT C/O RIGHT EAR ACHE AND HEADACHE X 2 DAYS HEENT Symptoms (Recalled from RN notes): Yes Resp Symptoms (Recalled from RN notes): No Skin Symptoms (Recalled from RN notes): No MS Symptoms (Recalled from RN notes): No Functional Status (Recalled from RN notes): WNL - History of Present Illness Provider Complaint: Patient states that she has been having headache and pain in her right ear for several days and feeling of pressure in her ear State that it kept her up most of the night last night so this morning when she woke up still having pain she came in - Related Data Previous Rx's Medication Instructions Recorded Labetalol HCl 100 mg PO DAILY #30 tab 02/21/21 nicotine 21 mg/24 hr daily 1 patch TRANSDERMA Q24H #28 each 03/16/21 transdermal patch Amoxicillin [Amoxicillin 875MG 875 mg PO Q12H #20 tab 04/03/21 Tab] Fluticasone Propionate [Flonase 1 spr NS DAILY #1 each 04/03/21 50mcg nasal spray 16gm] Allergies Allergy/AdvReac Type Severity Reaction Status Date / Time No Known Allergies Allergy Verified 11/04/20 08:35 - Worker's Comp Is this a Worker's Comp case?: No [facility] History - Hepatitis A Screen Drug use history?: No High risk sexual behaviors?: No History of sexually transmitted infection?: No Currently employed?: No Childcare worker?: No Do you have indoor plumbing?: Yes Do you have electricity?: Yes Attestation statement:: This patient has been screened for Hepatitis A risk factors. I have reviewed the patient's past medical history: Yes Medical History: Reports:: Depression, Hepatitis, Palpitations Denies:: Cancer, Diabetes Mellitus Type 1, Diabetes Mellitus Type 2, Internal Pacemaker, MRSA Laterality Cases: Bilateral: Tonsillectomy Other Surgeries: Yes: Tubal Ligation. No: Pacemaker Amputation: No
[2021-04-03 11:32] VITALS: BP 128/91; PULSE 86; RESP 19; TEMP 36.8; O2SAT 100
== END 2021-04-03 11:36 | disposition home or self-care (01) ==
PROVIDERS: Emergency Provider Nurse Practitioner; PCP Nurse Practitioner Family
DX: H66.91 Otitis media, unspecified, right ear (principal); F17.210 Nicotine dependence, cigarettes, uncomplicated
CPT/HCPCS: 99202; 99212; 99213; G0463

== ENCOUNTER 2021-08-28 12:40 | Emergency (ER) | payer MEDICAID, SELFPAY ==
[2021-08-28 13:14] VITALS: BP 150/86; PULSE 89; RESP 16; TEMP 37; O2SAT 99; BMI 25.4
--- NOTE | 2021-08-28 13:20 | HMH.EDUTC ---
[facility] [place] Disposition Clinical Impression: COVID-19, Viral syndrome Disposition: Home, Self-Care Condition on Discharge: Good Instructions: DI for COVID-19 (Suspected or Confirmed ), Preventing the Spread of Coronavirus Discharge Instructions Additional Instructions: Drink plenty of fluids. Take tylenol or ibuprofen for pain or fever. Take the medications as directed. Follow up with your regular doctor. GO TO THE ER FOR ANY WORSENING SYMPTOMS Quarantine until you know the results of your covid-19 test. Notify your school or workplace of your results and follow their instructions regarding return to work/school. The cough medication (promethazine dm) will make you drowsy, so don't drive or operate heavy machinery after taking it. Prescriptions: Promethazine/Dextromethorphan [Promethazine-Dm Syrup] 5 ml PO Q6HP PRN #240 ml PRN Reason: Cough Transmission Status: Received by [facility] Ondansetron [Zofran 4mg ODT] 4 mg PO Q8HP PRN #20 tab PRN Reason: Nausea Transmission Status: Received by [facility] Benzonatate [Benzonatate 100mg cap] 100 mg PO TIDP PRN #30 cap PRN Reason: Cough Transmission Status: Received by [facility] Referrals: Mahamed Hunter MD [Primary Care Provider] - Forms: Work/School Release Time of Disposition: 13:43 Medical Decision Making - Medical Records Medical records reviewed: No: I reviewed the patient's medical records. - Ben Inquiry Pt receiving controlled substance: No Vital Signs: 08/28/21 13:14 08/28/21 13:49 Temperature 98.6 F 98.6 F Temperature Source Oral Pulse Rate 89 Pulse Rate [Left] 89 Respiratory Rate 16 16 Blood Pressure 150/86 H Blood Pressure [Right Arm] 150/86 H Blood Pressure Mean [Right Arm] 107 02 Sat by Pulse Oximetry 99 - Lab Data Lab results reviewed: Yes: I reviewed the patient's lab results. [facility] [place] HPI - General Stated complaint: at home covid pos 08/28, congestion, cough Time Seen by Provider: 08/28/21 13:20 Description of Symptoms (Recalled from Triage Doc. by RN): patient comes in for covid test. patients kids are positive. she took an at home test today and it was positive. HEENT Symptoms (Recalled from RN notes): Yes Resp Symptoms (Recalled from RN notes): Yes Skin Symptoms (Recalled from RN notes): No MS Symptoms (Recalled from RN notes): No Functional Status (Recalled from RN notes): n/a - History of Present Illness Provider Complaint: She took a home covid-19 test yesterday at home. She has been feeling bad for the past 3 days days. Her home covid-19 test was positive. 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 - Related Data Previous Rx's Medication Instructions Recorded Labetalol HCl 100 mg PO DAILY #30 tab 02/21/21 nicotine 21 mg/24 hr daily 1 patch TRANSDERMA Q24H #28 each 03/16/21 transdermal patch Amoxicillin [Amoxicillin 875MG 875 mg PO Q12H #20 tab 04/03/21 Tab] Fluticasone Propionate [Flonase 1 spr NS DAILY #1 each 04/03/21 50mcg nasal spray 16gm] Benzonatate [Benzonatate 100mg 100 mg PO TIDP PRN #30 cap 08/28/21 cap] Ondansetron [Zofran 4mg ODT] 4 mg PO Q8HP PRN #20 tab 08/28/21 Promethazine/Dextromethorphan 5 ml PO Q6HP PRN #240 ml 08/28/21 [Promethazine-Dm Syrup] Allergies Allergy/AdvReac Type Severity Reaction Status Date / Time No Known Allergies Allergy Verified 08/28/21 13:17 - Worker's Comp Is this a Worker's Comp case?: No [facility] History - Hepatitis A Screen Attestation statement:: This patient has been screened for Hepatitis A risk factors. I have reviewed the patient's past medical history: Yes Medical History: Reports:: Depression, Hepatitis, Palpitations Denies:: Cancer, Diabetes Mellitus Type 1, Diabetes Mellitus Type 2, Internal Pacemaker, MRSA Laterality Cases: Bilateral: Tonsillectomy Other Surgeries: Yes: Tubal Ligation. No: Pacemaker Amputation: No Fractures: No - Social History Smoking Status
[2021-08-28 13:49] VITALS: BP 150/86; PULSE 89; RESP 16; TEMP 37
== END 2021-08-28 13:53 | disposition home or self-care (01) ==
PROVIDERS: Emergency Provider Nurse Practitioner Family; PCP Emergency Medicine
DX: U07.1 COVID-19 (principal)
CPT/HCPCS: 99212; C9803; G0463; U0003; U0005

== ENCOUNTER 2021-10-02 10:31 | Emergency (ER) | payer MEDICAID, SELFPAY ==
[2021-10-02 10:31] VITALS: BP 132/60; PULSE 98; RESP 16; TEMP 36.6; O2SAT 98; BMI 29.2
--- NOTE | 2021-10-02 10:49 | HMH.EDGENADL ---
ED Disposition Clinical Impression: Abscess, Cellulitis Disposition: Home, Self-Care Condition on Discharge: Good Additional Instructions: At this time was felt you are safe to be discharged from the emergency department. If new or worsening symptoms please not hesitate to return for continued evaluation. Please follow-up with your family doctor within 48 hours for continued evaluation. Please take antibiotics as prescribed. Prescriptions: Sulfamethoxazole/Trimethoprim [Bactrim DS tablet] 1 each PO BID 7 Days #14 tab Transmission Status: Pending to [facility] Referrals: Mahamed Hunter MD [Primary Care Provider] - - Critical Care Critical Care Time: No Attestation: On , the high probability of a clinically significant, sudden or life threatening deterioration of the following system(s) required my full and direct attention, intervention and personal management. The time I documented below is in addition to time spent performing reported procedures but includes the following listed in this critical care notation. Medical Decision Making - Ben Inquiry Pt receiving controlled substance: No Medical Decision Narrative: In summary this is a 31-year-old female with past medical history described below presents emergency department for right inframammary breast redness. No fluctuance on exam. Patient is hemodynamically stable and nontoxic-appearing without other acute complaints. [id number] ultrasound at bedside shows no drainable fluid collection. Given this it is likely cellulitis with a folliculitis or abscess that is spontaneously drained prior to arrival. Patient will be discharged with antibiotics and was given multiple extensive return precautions and verbalized understanding. General Adult HPI - General Stated complaint: bump under R breast Time Seen by Provider: 10/02/21 10:49 - History of Present Illness HPI narrative: Patient is a previously healthy 31-year-old female with past medical history of previous skin infections of the bilateral breasts responsive to antibiotics who presents emergency department for evaluation of a bump and redness underneath her right breast. Onset was acute occurring over the last 24 to 48 hours. There is associated purulence which it spontaneously busted on the way here for evaluation. In her right inframammary fold there is surrounding erythema and pain. Symptoms are moderate to severe in intensity. No other acute complaints at this time. - Related Data Previous Rx's Medication Instructions Recorded Labetalol HCl 100 mg PO DAILY #30 tab 02/21/21 nicotine 21 mg/24 hr daily 1 patch TRANSDERMA Q24H #28 each 03/16/21 transdermal patch Amoxicillin [Amoxicillin 875MG 875 mg PO Q12H #20 tab 04/03/21 Tab] Fluticasone Propionate [Flonase 1 spr NS DAILY #1 each 04/03/21 50mcg nasal spray 16gm] Benzonatate [Benzonatate 100mg 100 mg PO TIDP PRN #30 cap 08/28/21 cap] Ondansetron [Zofran 4mg ODT] 4 mg PO Q8HP PRN #20 tab 08/28/21 Promethazine/Dextromethorphan 5 ml PO Q6HP PRN #240 ml 08/28/21 [Promethazine-Dm Syrup] Sulfamethoxazole/Trimethoprim 1 each PO BID 7 Days #14 tab 10/02/21 [Bactrim DS tablet] Allergies Allergy/AdvReac Type Severity Reaction Status Date / Time No Known Allergies Allergy Verified 08/28/21 13:17 [facility] History - Hepatitis A Screen Attestation statement:: This patient has been screened for Hepatitis A risk factors. I have reviewed the patient's past medical history: Yes Medical History: Reports:: Depression, Hepatitis, Palpitations Denies:: Cancer, Diabetes Mellitus Type 1, Diabetes Mellitus Type 2, Internal Pacemaker, MRSA Laterality Cases: Bilateral: Tonsillectomy Other Surgeries: Yes: Tubal Ligation. No: Pacemaker Amputation: No Fractures: No - Social History Smoking Status: Current every day smoker Tobacco Type: e-cigarettes # Packs/Day (cigarettes): 1 Alcohol Intake: never Substance Use
[2021-10-02 11:02] VITALS: BP 130/81; PULSE 92; RESP 20; TEMP 36.6; O2SAT 98
== END 2021-10-02 11:16 | disposition home or self-care (01) ==
LOC: ER 11:08
PROVIDERS: Emergency Provider Emergency Medicine; PCP Emergency Medicine
DX: N61.1 Abscess of the breast and nipple (principal)
CPT/HCPCS: 99283

== ENCOUNTER 2021-11-02 08:04 | Emergency (ER) | payer MEDICAID, SELFPAY ==
--- NOTE | 2021-11-02 08:28 | EXP.UTC ---
Discharge Plan Disposition Patient Disposition: Home, Self-Care Condition: Good Prescriptions Prescriptions: No Action mupirocin calcium 2 % cream 1 applic topical TID PRN (Reason: irritation) Qty: 30 0RF hydrocortisone [Anti-Itch (HC)] 1 % cream 1 applic topical TID PRN (Reason: itching) Qty: 28.4 0RF Anti-Itch(diphenhyd) with Zinc 1-0.1 % cream 1 applic topical Q8H PRN (Reason: itching) Qty: 28 0RF nicotine 21 mg/24 hr patch 24 hour 1 patch TRANSDERMA Q24H Qty: 28 0RF labetalol 100 MG tablet 100 mg PO DAILY Qty: 30 0RF fluticasone propionate 120 SPR/BOT bottle 1 spr intranasal DAILY Qty: 1 0RF Rx Instructions: one spray in each nostril daily ondansetron 4 MG tablet,disintegrating 4 mg PO Q8HP PRN (Reason: Nausea) Qty: 20 0RF Referrals Follow up/Referrals: Clare Ramos PA [Primary Care Provider] - See instructions Activity Restrictions/Add. Instructions Additional Instructions/Restrictions: *Monitor Temp, Over the counter Motrin or Tylenol as directed/as needed Tylenol every 4 hours and Motrin every 6 hours (as long as your family doctor has told you that you can take it) for fever or pain. and straight to ER if unable to lower temp less than 101.0 after medication given *Warm salt water gargles may help to soothe the throat *Throat Lozenges? *Warm fluids like tea with honey may help to soothe the throat? *Sleep elevated *Humidifier/Vaporizer Follow up IMMEDIATELY for new or worsening symptoms or no Noticeable improvement over the next 48-72 hours. 911 for difficulty breathing or swallowing You were tested for today for COVID19 your test result should be back in the next 24-48 hours, you may check your result on the [facility] My Health Portal Make sure to take your Vitamins Vit. C Vit D and Zinc if you can take them Clinical Impressions Clinical Impression: Encounter for laboratory testing for COVID-19 virus Stand Alone Forms Stand Alone Forms: Work/School Release Instructions Patient Instructions: Coronavirus Disease 2019, Preventing the Spread of Coronavirus Discharge Instructions Discharge ED Provider: Yolsi Murphy [facility] H[place] General Stated complaint: body aches,cough,headache Time Seen by Provider: 11/02/21 08:37 History of Present Illness Provider Complaint: Patient states that she has been having nasal congestion cough and sneezing since Tuesday States that she thinks it is allergies but she went to work this morning and they sent her home to get tested for COVID Related Data Previous Rx's Medication Instructions Recorded labetalol 100 mg tablet 100 mg PO DAILY #30 tabs 02/21/21 nicotine 21 mg/24 hr daily 1 patch transdermal Q24H #28 ea 03/16/21 transdermal patch fluticasone propionate 50 1 spr intranasal DAILY #1 ea 04/03/21 mcg/actuation nasal spray,suspension ondansetron 4 mg disintegrating 4 mg PO Q8HP PRN Nausea #20 tabs 08/28/21 tablet diphenhydramine-zinc acetate 1 1 applic topical Q8H PRN itching 10/29/21 %-0.1 % topical cream (Anti-Itch #28 grams (diphenhydramine) with Zinc) hydrocortisone 1 % topical cream 1 applic topical TID PRN itching 10/29/21 (Anti-Itch (hydrocortisone)) #28.4 grams mupirocin calcium 2 % topical cream 1 applic topical TID PRN 10/29/21 irritation #30 grams Allergies Allergy/AdvReac Type Severity Reaction Status Date / Time No Known Allergies Allergy Verified 11/02/21 08:39 [facility] Medical History (Updated 11/02/21 @ 08:31 by Yolis Murphy APRN) Abnormal ECG during exercise stress test Abnormal electrocardiography Chest pain Gastroesophageal reflux disease Hepatitis C virus infection Hepatitis C virus infection cured after antiviral drug therapy Palpitations Social History Smoking Status: Current every day smoker tobacco type: e-cigarettes second hand exposure: No alcohol intake: never substance use
[2021-11-02 08:36] VITALS: BP 132/87; PULSE 84; RESP 16; TEMP 36.7; O2SAT 99; BMI 25.9
[2021-11-02 08:42] VITALS: BP 132/87; PULSE 84; RESP 16; TEMP 36.7
== END 2021-11-02 08:43 | disposition home or self-care (01) ==
PROVIDERS: Emergency Provider Nurse Practitioner; PCP Physician Assistant
DX: R07.9 Chest pain, unspecified (principal); R94.31 Abnormal electrocardiogram [ECG] [EKG]; R94.39 Abnormal result of other cardiovascular function study; R11.0 Nausea; R51.9 Headache, unspecified; M79.10 Myalgia, unspecified site; Z20.822 Contact with and (suspected) exposure to COVID-19; K21.9 Gastro-esophageal reflux disease without esophagitis; B19.20 Unspecified viral hepatitis C without hepatic coma; F17.290 Nicotine dependence, other tobacco product, uncomplicated; Z79.51 Long term (current) use of inhaled steroids; Z79.899 Other long term (current) drug therapy
CPT/HCPCS: 99213; C9803; G0463; U0003; U0005

== ENCOUNTER → 2021-11-04 13:30 | Outpatient (CLI) | payer MEDICAID, SELFPAY ==
--- NOTE | 2021-11-04 13:33 | US_ITS ---
PROCEDURE INFORMATION: Exam: US Right Breast, Complete MG Bilateral Screening 3D Mammography Exam date and time: 11/04/2021 2:18 PM Age: 31 years old Clinical indication: Concern for right breast lump at 6 o'clock with history of erythema and drainage. No reported family history of breast cancer. TECHNIQUE: Imaging protocol: Complete ultrasound of all four quadrants of the Right breast and the retroareolar regions, including ultrasound of the axilla when performed. Bilateral Screening tomosynthesis and 2D mammography including computer-aided detection (CAD) when performed. A circular skin marker was placed at the clinical lump, felt to be related to the skin. COMPARISON: MG MM DIG MAMM DX UNILAT RT CAD 11/26/2019 2:19 PM US BREAST RT COMPLETE 11/26/2019 2:42 PM FINDINGS: MAMMOGRAPHY: Breast composition: There are scattered areas of fibroglandular density. Mass: None. Architectural distortion: None. Calcifications: No suspicious calcifications. Asymmetric density: Stable asymmetrically denser breast tissue on the right at 12 o'clock posterior 3rd. Similar appearance of focal asymmetry or asymmetrically denser breast tissue on the left in the upper outer quadrant posterior 3rd as well as the lower inner quadrant posterior 3rd - both about 13 cm from the nipple. Skin thickening: None. Axillary adenopathy: None. ULTRASOUND: Right sonography, all 4 quadrants, retroareolar and axilla. At the palpable area at 6 o'clock 8 cm from the nipple, oval hypoechoic region within the echogenic skin layer measuring 0.8 x 0.2 x 1.8 cm, this may be within the spectrum of a sebaceous cyst, correlate clinically for possible history of related infection. In the axilla, suggestion of masslike area with the hypoechoic center,measuring approximately 1.5, which appears more dermal (also in the spectrum of sebaceous cyst) than subdermal (which may be in the spectrum of hidradenitis superativa). No other cystic or solid findings demonstrated. Sonographically unremarkable right axillary lymph node. IMPRESSION: Palpable concern on the right at 6 o'clock corresponds to a finding in the skin, likely in the range of a sebaceous cyst which could be correlated clinically, also for infection. Right axillary superficial cystic area which may be a sebaceous cyst or related to hidradenitis superativa, again which could be correlated clinically. Further evaluation of a palpable abnormality should be based on clinical grounds regardless of radiographic findings or lack thereof. Focal asymmetries in the left upper outer and lower inner breast, more likely asymmetrically distributed breast tissue, suggest recall for left diagnostic mammography with spot compression in the CC and full field true left lateral and left breast ultrasound. ASSESSMENT: Assessment: BI-RADS Category 0: Incomplete- Need Additional Imaging Evaluation and/or Prior Mammograms for Comparison
== END ==
PROVIDERS: PCP Physician Assistant; Visit Provider Physician Assistant
DX: N63.15 Unspecified lump in the right breast, overlapping quadrants; N60.11 Diffuse cystic mastopathy of right breast; Z12.31 Encounter for screening mammogram for malignant neoplasm of breast
CPT/HCPCS: 76641; 77063; 77067

== ENCOUNTER → 2021-11-23 14:45 | Outpatient (CLI) | payer MEDICAID, SELFPAY ==
--- NOTE | 2021-11-23 14:46 | MM_ITS ---
PROCEDURE INFORMATION: Exam: US Left Breast, Complete MG Left Diagnostic Breast Tomosynthesis Exam date and time: 11/23/2021 3:38 PM Age: 31 years old Clinical indication: Recall on the basis of screening mammogram 11/04/2021 for further evaluation of focal asymmetries in the left upper outer and lower inner breast. TECHNIQUE: Imaging protocol: Complete ultrasound of all four quadrants of the Left breast and the retroareolar regions, including ultrasound of the axilla when performed. Left Diagnostic tomosynthesis and 2D mammography including computer-aided detection (CAD) when performed. Unilateral or bilateral exam. COMPARISON: MG MM DIG MAMM DX UNILAT LT CAD 11/23/2021 2:47 PM FINDINGS: MAMMOGRAPHY: Spot compression in the CC projection and full field left lateral shows similar less prominent patchy asymmetries in the upper outer and lower inner posterior thirds, with no suspicious mass. ULTRASOUND: Left sonography, all 4 quadrants, retroareolar and axilla demonstrates no solid or sonographic non masslike findings to correspond to the mammographic asymmetries. At 10 o'clock 6 cm from the nipple, a complicated cyst measuring 0.3 x 0.2 x 0.3 cm. Sonographically unremarkable left axillary lymph node. IMPRESSION: Probably benign questionable persistent asymmetry in the upper outer lower inner left breast. Probably benign complicated cyst on the left at 6 o'clock and probably benign findings on the right at 6 o'clock and in the axillary region (as reported 11/04/2021). Suggest six-month follow-up left diagnostic mammogram and targeted bilateral sonography on the right at 6 o'clock and in the axilla and on the left at 6 o'clock, unless otherwise clinically indicated. ASSESSMENT: BI-RADS Category 3: Probably benign
== END ==
PROVIDERS: PCP Physician Assistant; Visit Provider Physician Assistant
DX: R92.8 Other abnormal and inconclusive findings on diagnostic imaging of breast (principal)
CPT/HCPCS: 76641; 77061; 77065; G0279

== ENCOUNTER 2021-12-08 07:42 | Emergency (ER) | payer MEDICAID, SELFPAY ==
[2021-12-08 08:00] VITALS: BP 115/85; BP 124/96; PULSE 77; PULSE 88; RESP 16; RESP 18; TEMP 36.8; O2SAT 99; BMI 28.1
[2021-12-08 08:31] VITALS: BP 113/76; PULSE 72; RESP 18; O2SAT 97
--- NOTE | 2021-12-08 08:40 | US_ITS ---
FINAL REPORT CLINICAL HISTORY: intermittent RUQ pain FINDINGS: Sonographic images of the right upper quadrant were obtained. The pancreas is partially obscured.The liver has an unremarkable appearance. There is a small amount of sludge in the gallbladder. There is no evidence of biliary ductal dilatation.The common duct measures 5 mm. Limited images of the right kidney are unremarkable. IMPRESSION: Gallbladder sludge. Reviewed, Interpreted and Dictated by Tawanda Kurtz III, MD Transcribed by Joann Pacheco Authenticated and [facility]
--- NOTE | 2021-12-08 08:41 | HMH.EDGENADL ---
Discharge Plan Disposition Patient Disposition: Home, Self-Care Condition: Good Prescriptions Prescriptions: New pantoprazole [Protonix] 40 mg tablet,delayed release (DR/EC) 40 mg PO DAILY Qty: 10 0RF ondansetron HCl 4 mg tablet 4 mg PO Q8H PRN (Reason: nausea and vomiting) Qty: 10 0RF No Action mupirocin calcium 2 % cream 1 applic topical TID PRN (Reason: irritation) Qty: 30 0RF hydrocortisone [Anti-Itch (HC)] 1 % cream 1 applic topical TID PRN (Reason: itching) Qty: 28.4 0RF Anti-Itch(diphenhyd) with Zinc 1-0.1 % cream 1 applic topical Q8H PRN (Reason: itching) Qty: 28 0RF nicotine 21 mg/24 hr patch 24 hour 1 patch TRANSDERMA Q24H Qty: 28 0RF labetalol 100 MG tablet 100 mg PO DAILY Qty: 30 0RF fluticasone propionate 120 SPR/BOT bottle 1 spr intranasal DAILY Qty: 1 0RF Rx Instructions: one spray in each nostril daily ondansetron 4 MG tablet,disintegrating 4 mg PO Q8HP PRN (Reason: Nausea) Qty: 20 0RF Referrals Follow up/Referrals: Clare Ramos PA [Primary Care Provider] - See instructions Activity Restrictions/Add. Instructions Additional Instructions/Restrictions: Protonix as prescribed. Zofran as needed for nausea or vomiting. Additional instructions for ABDOMINAL PAIN: See your physician as soon as possible for further evaluation. Return immediately if worsening abdominal pain, vomiting, shortness of breath, fever, vomiting of blood or abdominal distention. Clinical Impressions Clinical Impression: Intermittent right upper quadrant abdominal pain Instructions Patient Instructions: DI for Acute Abdominal Pain Discharge ED Provider: Oren Workman General Adult HPI General Chief complaint: Abdominal Pain Stated complaint: sharp pain under rightside and back pain Time Seen by Provider: 12/08/21 08:35 Mode of Arrival: Ambulatory Source of Information: Patient Limitations: No Limitations Description of Symptoms (Recalled from ER Triage Doc. by RN): Pt c/o pain under rt breast that radiates to back at times x1 month. Advises that it has increased in frequency. History of Present Illness HPI narrative: 1 month history of right upper quadrant and epigastric abdominal pain intermittently. States it usually last 5 to 7 minutes. No exacerbating or alleviating factors. Intermittently associated with vomiting (3 times she has had associated vomiting). Had an episode this morning associated with vomiting, symptoms now resolved. No fever, urinary symptoms, diarrhea. She has had prior section, no other surgeries. She states she had a gallbladder evaluation years ago, she remembers a HIDA scan, but does not remember her ultrasound. Work-up was negative. Related Data Previous Rx's Medication Instructions Recorded labetalol 100 mg tablet 100 mg PO DAILY #30 tabs 02/21/21 nicotine 21 mg/24 hr daily 1 patch transdermal Q24H #28 ea 03/16/21 transdermal patch fluticasone propionate 50 1 spr intranasal DAILY #1 ea 04/03/21 mcg/actuation nasal spray,suspension ondansetron 4 mg disintegrating 4 mg PO Q8HP PRN Nausea #20 tabs 08/28/21 tablet diphenhydramine-zinc acetate 1 1 applic topical Q8H PRN itching 10/29/21 %-0.1 % topical cream (Anti-Itch #28 grams (diphenhydramine) with Zinc) hydrocortisone 1 % topical cream 1 applic topical TID PRN itching 10/29/21 (Anti-Itch (hydrocortisone)) #28.4 grams mupirocin calcium 2 % topical cream 1 applic topical TID PRN 10/29/21 irritation #30 grams ondansetron HCl 4 mg tablet 4 mg PO Q8H PRN nausea and 12/08/21 vomiting #10 tabs pantoprazole 40 mg tablet,delayed 40 mg PO DAILY #10 tabs 12/08/21 release (Protonix) Allergies Allergy/AdvReac Type Severity Reaction Status Date / Time No Known Allergies Allergy Verified 11/02/21 08:39 [facility] Medical History (Updated 12/08/21 @ 11:01 by Oren Workman MD) Abnormal ECG during exercise stress test Abnormal electrocar
[2021-12-08 08:54] LABS: Chloride 105 mmol/L (98-107); Sodium 140 mmol/L (136-145)
[2021-12-08 08:55] LABS: Basophils # 0.1 K/mm3 (0-0.2); Basophils % 0.9 % (0.1-2.0); Eosinophils # 0.1 K/mm3 (0.0-0.4); Eosinophils % 2.1 % (0.1-12.0); Hematocrit 43.8 % (37.0-47.0); Hemoglobin 14.6 g/dL (12.2-16.2); Lymphocytes # 2.2 K/mm3 (0.7-4.5); Lymphocytes % 32.5 % (10-50); Mean Corpuscular HGB Conc 33.3 g/dL (31.8-35.4); Mean Corpuscular Hemoglobin 32.5 pg (27.0-31.2); Mean Corpuscular Volume 97.3 fl (81-99); Mean Platelet Volume 8.7 fl (7.4-10.4); Monocytes # 0.4 K/mm3 (0.1-1.0); Monocytes % 5.2 % (1.7-9.3); Neutrophils # 4.1 K/mm3 (1.8-7.8); Neutrophils % 59.3 % (37.0-80.0); Platelet Count 247 K/mm3 (142-424); Potassium 3.9 mmoL/L (3.5-5.1); Red Cell Distribution Width 13.7 % (11.5-17.5); White Blood Count 6.9 K/mm3 (4.8-10.8)
[2021-12-08 08:57] LABS: Alanine Aminotransferase 17 U/L (12-78); Albumin Level 4.2 g/dl (3.5-5.0); Alkaline Phosphatase 86 U/L (38-126); Anion Gap 11.9 mEq/L (5-15); Aspartate Amino Transferase 25 U/L (14-36); Bilirubin,Total 0.2 mg/dl (0.2-1.3); Blood Urea Nitrogen 13 mg/dl (7-17); Carbon Dioxide 27 mmol/L (22.0-30.0); Creatinine Clearance Estimated 214 mL/min (50-200); Estimated Glomerular Filt Rate 143 ml/min (>60); GFR (African American) 173 ML/MIN (>60); Globulin 2.9 g/dL (1.3-3.2); Glucose 101 mg/dl (74-100); Lipase 39 U/L (23-300); Total Protein,Serum 7.1 g/dl (6.3-8.2)
[2021-12-08 08:58] LABS: Albumin/Globulin Ratio 1.4 (1.1-1.8)
[2021-12-08 08:59] LABS: HCG Qualitative, Serum Negative (Negative)
[2021-12-08 09:00] VITALS: BP 114/75; PULSE 72; RESP 18; O2SAT 98
--- NOTE | 2021-12-08 09:11 | PC.NURSE ---
Pt states that she is unable to provide a urine sample at this time.
[2021-12-08 09:39] VITALS: BP 120/84; PULSE 69; RESP 18; O2SAT 99
[2021-12-08 09:40] LABS: Microscopic, Urine URINE MICROSCOPIC (MICROSCOPIC)
[2021-12-08 09:49] LABS: Appearance,Urine SL CLOUDY (Clear); Bilirubin,Urine Negative (Negative); Blood, Urine Negative (Negative); Color,Urine YELLOW (Yellow); Glucose,Urine (UA) Negative (Negative); Ketones,Urine Negative (Negative); Leukocyte Esterase,Urine Negative (Negative); Nitrate,Urine Negative (Negative); PH,Urine 6.5 (5.0-8.5); Protein,Urine Negative (Negative); Urobilinogen,Urine 0.2 EU/dl (0.2)
[2021-12-08 10:00] VITALS: BP 112/83; PULSE 65; RESP 17; O2SAT 98
[2021-12-08 11:13] VITALS: BP 110/80; PULSE 62; RESP 18; TEMP 36.8; O2SAT 99
== END 2021-12-08 11:14 | disposition home or self-care (01) ==
PROVIDERS: Emergency Provider Emergency Medicine; PCP Physician Assistant
DX: R10.11 Right upper quadrant pain (principal); K82.8 Other specified diseases of gallbladder
CPT/HCPCS: 76705; 80053; 81001; 83690; 84703; 85025; 99284

== ENCOUNTER 2022-02-17 13:10 | Emergency (ER) | payer MEDICAID, SELFPAY ==
[2022-02-17 13:20] VITALS: BP 125/62; PULSE 91; RESP 19; TEMP 36.7; O2SAT 100; BMI 30.2
--- NOTE | 2022-02-17 13:45 | PC.WOUNDNOTE ---
ER MD at speaking with patient regarding update on POC
--- NOTE | 2022-02-17 13:52 | CT_ITS ---
PROCEDURE INFORMATION: Exam: CT Head Without Contrast Exam date and time: 02/17/2022 2:22 PM Age: 32 years old Clinical indication: Pain; Headache not specified; Additional info: New daily headaches, patient states on right side TECHNIQUE: Imaging protocol: Computed tomography of the head without contrast. Radiation optimization: All CT scans at this facility use at least one of these dose optimization techniques: automated exposure control; mA and/or kV adjustment per patient size (includes targeted exams where dose is matched to clinical indication); or iterative reconstruction. COMPARISON: US CA CAROTID DUPLEX BI 06/25/2020 10:27 AM FINDINGS: Brain: No evidence of acute parenchymal hemorrhage, extra-axial collection or local regional mass effect. Cerebral ventricles: The ventricles, sulci and cisterns are normal in size and configuration. No hydrocephalus or midline structure shift Pituitary gland and sella: Sellar/parasellar structures, orbits and craniocervical junction are unremarkable Paranasal sinuses: Scattered mucosal thickening throughout the maxillary sinuses. Mastoid air cells: Visualized mastoid air cells are well aerated. Bones/joints: No calvarial fracture Soft tissues: Unremarkable. IMPRESSION: 1. No acute intracranial abnormality. No calvarial fracture. 2. Mild maxillary infectious/inflammatory sinusitis
--- NOTE | 2022-02-17 13:57 | HMH.EDGENADL ---
Discharge Plan Disposition Patient Disposition: Home, Self-Care Condition: Good Prescriptions Prescriptions: No Action spironolactone 25 mg tablet 25 mg PO DAILY Qty: 30 2RF metformin 500 mg tablet extended release 24 hr 500 mg PO DAILY Qty: 30 2RF norgestimate-ethinyl estradiol [[id number]-[id number]] 0.18/0.215/0.25 mg-25 mcg tablet 1 tab PO DAILY Qty: 84 0RF minocycline 100 mg capsule 100 mg PO BID Qty: 60 2RF diazepam [Valium] 2 mg tablet 2 mg PO BID PRN (Reason: anxiety) Qty: 20 0RF pantoprazole [Protonix] 40 mg tablet,delayed release (DR/EC) 40 mg PO DAILY Qty: 10 0RF Referrals Follow up/Referrals: Clare Ramos PA [Primary Care Provider] - See instructions Activity Restrictions/Add. Instructions Additional Instructions/Restrictions: You were evaluated in the emergency department today and diagnosed with a migraine. Please follow-up with your primary care provider over the next 48 hours. Return to the emergency department for any new or worsening symptoms. Clinical Impressions Clinical Impression: Migraine Qualifiers: Migraine type: unspecified Status migrainosus presence: without status migrainosus Intractability: not intractable Qualified Code(s): G43.909 - Migraine, unspecified, not intractable, without status migrainosus Instructions Patient Instructions: DI for Migraine Discharge ED Provider: Nanette Dawson General Adult HPI General Chief complaint: Headache Stated complaint: GUTHRIE Time Seen by Provider: 02/17/22 13:36 Mode of Arrival: Ambulatory Source of Information: Patient Limitations: No Limitations Description of Symptoms (Recalled from ER Triage Doc. by RN): c/o right head pain that goes from her forehead to the top of her head for one week. Pt states that last week she bent over while she was sweeping and she got a sharp pain and it hasnt went completely away. States her GUTHRIE could be gone in the morning and then t/o the day it comes back if she is watching TV or looking at her phone. Is suppose to wear glasses but she doesnt. History of Present Illness HPI narrative: This patient is a 32-year-old female with history of anxiety presenting to the emergency department for evaluation of headache. She reports that approximately 1 week ago, she was sweeping and bent over to sleep things into the chest pain when she felt a sharp pain along the right side of her head. Since then, she has had daily headaches that consist of pain on the right side of her head. It comes back if she watches TV or looks at her phone. She states that she feels like it may be coming from her eyes. She denies any fevers, chills, vision changes, numbness, tingling, unilateral weakness, dizziness, or other concerns. She also denies any recent traumas. She denies any history of prior headaches or migraines in the past. No other concerns noted at this time. Related Data Previous Rx's Medication Instructions Recorded pantoprazole 40 mg tablet,delayed 40 mg PO DAILY #10 tabs 12/08/21 release (Protonix) diazepam 2 mg tablet (Valium) 2 mg PO BID PRN anxiety #20 tabs 01/05/22 metformin 500 mg tablet,extended 500 mg PO DAILY #30 tabs 01/05/22 release 24 hr minocycline 100 mg capsule 100 mg PO BID #60 caps 01/05/22 norgestimate 0.18 mg/0.215 mg/0.25 1 tab PO DAILY #84 tabs 01/05/22 mg-ethinyl estradiol 25 mcg tablet ([id number]) spironolactone 25 mg tablet 25 mg PO DAILY #30 tabs 01/05/22 Allergies Allergy/AdvReac Type Severity Reaction Status Date / Time No Known Allergies Allergy Verified 01/05/22 14:54 [facility] Disclaimer: The information contained in this section may have been updated after the patient was seen, as this information can be updated by other users. Medical History Abnormal ECG during exercise stress test Abnormal electrocardiography Chest pain Gastroesophageal reflux disease Hepatitis C virus infection
[2022-02-17 14:20] LABS: Urine Pregnancy, HCG Qual. Negative (Negative)
--- NOTE | 2022-02-17 14:28 | PC.NURSE ---
pt returned from radiology via WC with design technology teacher
[2022-02-17 14:30] VITALS: BP 108/80; PULSE 69; RESP 20; O2SAT 100
--- NOTE | 2022-02-17 14:39 | PC.NURSE ---
patient ambulatory to restroom without complications
--- NOTE | 2022-02-17 15:00 | PC.NURSE ---
FRANTZ Coleman rounding on patient, no needs at this time. Lights out for patients comfort. Call light within reach
[2022-02-17 15:40] VITALS: BP 128/81; PULSE 75; RESP 20; O2SAT 98
[2022-02-17 16:00] VITALS: BP 128/81; PULSE 75; RESP 20; TEMP 36.7; O2SAT 98
== END 2022-02-17 16:01 | disposition home or self-care (01) ==
PROVIDERS: Emergency Provider Emergency Medicine; PCP Physician Assistant
DX: G43.909 Migraine, unspecified, not intractable, without status migrainosus (principal); F17.210 Nicotine dependence, cigarettes, uncomplicated; R07.9 Chest pain, unspecified; R94.31 Abnormal electrocardiogram [ECG] [EKG]; K21.9 Gastro-esophageal reflux disease without esophagitis; R00.2 Palpitations; B18.2 Chronic viral hepatitis C
CPT/HCPCS: 70450; 81025; 96361; 96374; 96375; 99285

== ENCOUNTER 2022-04-14 07:11 | Day surgery (SDC) | payer MEDICAID, SELFPAY ==
[2022-04-12 13:07] VITALS: BMI 26.9
[2022-04-14 07:23] VITALS: BP 123/91; PULSE 93; RESP 17; TEMP 36.6; O2SAT 96
--- NOTE | 2022-04-14 08:18 | EXP.OP.NOTE ---
Date of procedure: 04/14/22 Pre-op Diagnosis:: Right upper back sebaceous cyst (1 cm) Post-op Diagnosis:: Same Procedure performed:: Excision of 1 cm sebaceous cyst from right upper back Surgeon:: Kenneth Mohan MD Anesthesia: local Estimated blood loss (mL): 5 Operative findings:: 1 cm cyst in shallow subcutaneous tissue Operative note:: After informed consent was obtained the patient was taken to the procedure room and maintained in a seated position. Her right upper back was prepped and draped in a sterile fashion. After infiltration with local anesthetic an incision was made overlying the central portion of the lesion. A combination of sharp dissection and electrocautery was utilized to excise a 1 cm sebaceous cyst that was in the shallow subcutaneous tissue. The cyst was excised in toto and passed off for pathologic evaluation. Electrocautery was utilized to achieve hemostasis. Skin was reapproximated with 4-0 nylon and dressings were applied. The patient was discharged in stable condition. Condition: stable Disposition: no change Specimens:: 1 cm sebaceous cyst from right upper back Complications:: No immediate
[2022-04-14 08:20] VITALS: BP 127/70; PULSE 64; RESP 14; TEMP 36.4; O2SAT 99
[2022-04-14 08:29] VITALS: BP 127/70; PULSE 64; RESP 14; TEMP 36.4; O2SAT 99
== END 2022-04-14 08:29 | disposition home or self-care (01) ==
PROVIDERS: PCP Physician Assistant; Visit Provider Surgery
PROC: (CPT 11402; principal; 2022-04-14 08:00)
DX: L72.0 Epidermal cyst (principal); F17.210 Nicotine dependence, cigarettes, uncomplicated
CPT/HCPCS: 11402

== ENCOUNTER → 2022-05-30 12:05 | Outpatient (CLI) | payer MEDICAID, SELFPAY ==
--- NOTE | 2022-05-30 12:11 | XR_ITS ---
PROCEDURE INFORMATION: Exam: XR Right Toe(s) Exam date and time: 05/30/2022 12:08 PM Age: 32 years old Clinical indication: Other: Calus; Additional info: Corns 4th and 5th toes TECHNIQUE: Imaging protocol: Radiologic exam of the right toes. Views: Minimum 2 views. COMPARISON: CA VENOUS DOPPLER LE BI 07/05/2019 9:27 AM FINDINGS: Bones/joints: Normal. No acute fracture or dislocation. Soft tissues: Unremarkable. IMPRESSION: No acute findings.
== END ==
PROVIDERS: PCP Physician Assistant; Visit Provider Podiatrist
DX: M79.674 Pain in right toe(s) (principal); M20.41 Other hammer toe(s) (acquired), right foot; M25.571 Pain in right ankle and joints of right foot; L84 Corns and callosities; M89.8X7 Other specified disorders of bone, ankle and foot
CPT/HCPCS: 73660

== ENCOUNTER → 2022-06-15 23:36 | Outpatient (CLI) | payer MEDICAID, SELFPAY ==
[2022-06-15 17:19] LABS: Chloride 99 mmol/L (98-107); Potassium 3.9 mmoL/L (3.5-5.1); Sodium 137 mmol/L (136-145)
[2022-06-15 17:21] LABS: Alanine Aminotransferase 18 U/L (12-78); Aspartate Amino Transferase 24 U/L (14-36); Blood Urea Nitrogen 16 mg/dl (7-17); Estimated Glomerular Filt Rate 115 ml/min (>60); GFR (African American) 139 ML/MIN (>60)
[2022-06-15 17:22] LABS: Albumin Level 4.5 g/dl (3.5-5.0); Albumin/Globulin Ratio 1.6 (1.1-1.8); Alkaline Phosphatase 92 U/L (38-126); Anion Gap 15.9 mEq/L (5-15); Bilirubin,Total 0.6 mg/dl (0.2-1.3); Calcium 9.3 mg/dl (8.4-10.2); Carbon Dioxide 26 mmol/L (22.0-30.0); Chol/HDL Ratio 3.6 (1-3.5); Cholesterol 217 mg/dl (140-200); Globulin 2.8 g/dL (1.3-3.2); Glucose 90 mg/dl (74-100); HDL Cholesterol 60 mg/dl (40-60); Total Protein,Serum 7.3 g/dl (6.3-8.2); Triglycerides 59 mg/dl (30-150); VLDL Cholesterol 12 mg/dL (0-40)
[2022-06-15 17:33] LABS: Direct LDL Cholesterol 141.43 mg/dL (100-129)
[2022-06-15 17:38] LABS: Basophils # 0.1 K/mm3 (0-0.2); Basophils % 0.8 % (0.1-2.0); Eosinophils # 0.1 K/mm3 (0.0-0.4); Eosinophils % 0.9 % (0.1-12.0); Hematocrit 45.3 % (37.0-47.0); Hemoglobin 15.1 g/dL (12.2-16.2); Lymphocytes # 2.4 K/mm3 (0.7-4.5); Lymphocytes % 30.2 % (10-50); Mean Corpuscular HGB Conc 33.3 g/dL (31.8-35.4); Mean Corpuscular Hemoglobin 33.1 pg (27.0-31.2); Mean Corpuscular Volume 99.2 fl (81-99); Mean Platelet Volume 8.9 fl (7.4-10.4); Monocytes # 0.4 K/mm3 (0.1-1.0); Monocytes % 4.8 % (1.7-9.3); Neutrophils # 5.1 K/mm3 (1.8-7.8); Neutrophils % 63.4 % (37.0-80.0); Platelet Count 256 K/mm3 (142-424); Red Blood Count 4.56 M/mm3 (4.20-5.40); Red Cell Distribution Width 13.9 % (11.5-17.5); White Blood Count 8.1 K/mm3 (4.8-10.8)
[2022-06-15 17:40] LABS: T4 (Thyroxine) 10.9 ug/dl (5.53-11.0)
[2022-06-15 17:54] LABS: Thyroid Stimulating Hormone 0.99 uIU/mL (0.465-4.68)
== END ==
PROVIDERS: PCP Student in an Organized Health Care Education/Training Program; Visit Provider Student in an Organized Health Care Education/Training Program
DX: R22.1 Localized swelling, mass and lump, neck (principal); Z13.220 Encounter for screening for lipoid disorders
CPT/HCPCS: 80053; 80061; 84436; 84443; 85025

== ENCOUNTER → 2022-06-17 09:43 | Outpatient (CLI) | payer MEDICAID, SELFPAY ==
--- NOTE | 2022-06-17 09:44 | US_ITS ---
FINAL REPORT TECHNIQUE: Real-time grayscale and color ultrasound of the soft tissues of the neck was performed. CLINICAL HISTORY: enlarged lymph nodes in the neck COMPARISON: None FINDINGS: Ultrasound images of the area of concern in the neck were obtained. There are small scattered cervical lymph nodes, largest measuring up to 2.2 cm in the left neck. These demonstrate fatty sugey. Submandibular glands appear symmetric. IMPRESSION: Small scattered nodes. Clinical follow-up recommended. If adenopathy persists or progresses, infused neck CT may be of value. Reviewed, Interpreted and Dictated by Ruben Gay MD Transcribed by Dena Ulrich Authenticated and [facility]
== END ==
PROVIDERS: PCP Emergency Medicine; Visit Provider Student in an Organized Health Care Education/Training Program
DX: R59.9 Enlarged lymph nodes, unspecified (principal)
CPT/HCPCS: 76536

== ENCOUNTER → 2022-06-24 12:45 | Outpatient (CLI) | payer MEDICAID, SELFPAY ==
--- NOTE | 2022-06-24 12:51 | MM_ITS ---
PROCEDURE INFORMATION: Exam: MG Left Diagnostic Breast Tomosynthesis Exam date and time: 06/24/2022 1:29 PM Age: 32 years old Clinical indication: Short-term radiographic followup; left breast asymmetry TECHNIQUE: Imaging protocol: Left Diagnostic tomosynthesis and 2D mammography including computer-aided detection (CAD) when performed. Unilateral or bilateral exam. COMPARISON: 1. MG MM DIG MAMM DX UNILAT LT CAD 11/23/2021 2:47 PM 2. MG MM DIG SCREENING MAMM BI W/CAD 11/04/2021 1:35 PM FINDINGS: MAMMOGRAPHY: The breast tissue is composed of scattered areas of fibroglandular density. There is no stellate mass, architectural distortion or suspicious microcalcifications to suggest malignancy. Normal overlapping fibroglandular structures on routine and spot compression views. No skin thickening or axillary adenopathy. IMPRESSION: No mammographic evidence of malignancy. Annual bilateral mammographic screening is recommended in November 2022 unless otherwise clinically indicated. ASSESSMENT: BI-RADS Category 1: Negative
--- NOTE | 2022-06-24 12:51 | US_ITS ---
PROCEDURE INFORMATION: Exam: US Left Breast, Complete Exam date and time: 06/24/2022 1:25 PM Age: 32 years old Clinical indication: Abnormal findings on imaging; Left; Cyst; Patient HX: 6 mth f/u; Additional info: Abnormal mammogram TECHNIQUE: Imaging protocol: Complete ultrasound of all four quadrants of the left breast and the retroareolar regions, including ultrasound of the axilla when performed. COMPARISON: US BREAST LT COMPLETE 11/23/2021 3:38 PM FINDINGS: Breast: Very small cystic structure in the upper inner quadrant of the left breast 10 o'clock position 6 cm from the nipple. It measures 2.5 by 3.3 x 1.4 mm. Other findings: Normal lymph node in the left axilla 1.4 by 1.1 cm. IMPRESSION: 1. Very small cystic structure in the upper inner quadrant of the left breast 10 o'clock position 6 cm from the nipple. It measures 2.5 by 3.3 x 1.4 mm. 2. Normal lymph node in the left axilla 1.4 by 1.1 cm. ASSESSMENT: Benign findings
--- NOTE | 2022-06-24 12:51 | US_ITS ---
PROCEDURE INFORMATION: Exam: US Right Breast, Complete Exam date and time: 06/24/2022 1:16 PM Age: 32 years old Clinical indication: Abnormal findings on imaging; Right; Dense breast; Patient HX: 6 mth f/u; Additional info: Abnormal mammogram TECHNIQUE: Imaging protocol: Complete ultrasound of all four quadrants of the right breast and the retroareolar regions, including ultrasound of the axilla when performed. COMPARISON: US BREAST RT COMPLETE 11/04/2021 2:18 PM FINDINGS: Breast: No solid or cystic lesions. Other findings: Healed area noted in the right axilla. Normal lymph node 8.2 mm. IMPRESSION: 1. Healed area noted in the right axilla. 2. Normal lymph node 8.2 mm. ASSESSMENT: Benign
== END ==
PROVIDERS: PCP Emergency Medicine; Visit Provider Physician Assistant
DX: R92.8 Other abnormal and inconclusive findings on diagnostic imaging of breast (principal)
CPT/HCPCS: 76641; 77061; 77065; G0279

== ENCOUNTER 2022-09-08 23:10 | Emergency (ER) | payer MEDICAID, SELFPAY ==
--- NOTE | 2022-09-08 23:15 | ECG_ITS ---
APPROVED REPORT Exam: Resting ECG HR:85 bpm ECG Measurements Heart Rate 85 AXES NC 139 P 66 QRSd 90 QRS 70 QT 364 T 39 QTc 406 Conclusion SINUS RHYTHM NORMAL ECG UNCONFIRMED REPORT Electronically signed by : Ezequiel Robertson MD 09/09/2022 07:38:14
[2022-09-08 23:19] VITALS: BP 145/96; PULSE 101; RESP 14; TEMP 36.8; O2SAT 96; BMI 27.0
--- NOTE | 2022-09-08 23:26 | XR_ITS ---
PROCEDURE INFORMATION: Exam: XR Chest Exam date and time: 09/08/2022 11:24 PM Age: 32 years old Clinical indication: Other: Palpitations TECHNIQUE: Imaging protocol: Radiologic exam of the chest. Views: 2 views. COMPARISON: CR XR CHEST PORTABLE 02/21/2021 4:15 PM FINDINGS: Lungs: Unremarkable. No consolidation. Pleural spaces: Unremarkable. No pleural effusion. No pneumothorax. Heart/Mediastinum: Unremarkable. No cardiomegaly. Bones/joints: Unremarkable. IMPRESSION: No acute findings.
[2022-09-08 23:32] LABS: Basophils # 0.1 K/mm3 (0-0.2); Basophils % 0.6 % (0.1-2.0); Eosinophils # 0.2 K/mm3 (0.0-0.4); Eosinophils % 1.8 % (0.1-12.0); Hematocrit 45.1 % (37.0-47.0); Hemoglobin 14.7 g/dL (12.2-16.2); Lymphocytes # 3.7 K/mm3 (0.7-4.5); Lymphocytes % 42.7 % (10-50); Mean Corpuscular HGB Conc 32.7 g/dL (31.8-35.4); Mean Corpuscular Hemoglobin 32.1 pg (27.0-31.2); Mean Corpuscular Volume 98.4 fl (81-99); Mean Platelet Volume 8.2 fl (7.4-10.4); Monocytes # 0.4 K/mm3 (0.1-1.0); Monocytes % 5.2 % (1.7-9.3); Neutrophils # 4.3 K/mm3 (1.8-7.8); Neutrophils % 49.7 % (37.0-80.0); Platelet Count 265 K/mm3 (142-424); Red Blood Count 4.58 M/mm3 (4.20-5.40); Red Cell Distribution Width 13.8 % (11.5-17.5); White Blood Count 8.6 K/mm3 (4.8-10.8)
--- NOTE | 2022-09-08 23:37 | PC.NURSE ---
Pt returned from RAD
--- NOTE | 2022-09-08 23:41 | HMH.EDGENADL ---
Discharge Plan Disposition Patient Disposition: Home, Self-Care Condition: Good Prescriptions Prescriptions: No Action doxycycline hyclate 100 mg capsule 100 mg PO BID Referrals Follow up/Referrals: Mahamed Hunter MD [Primary Care Provider] - See instructions Activity Restrictions/Add. Instructions Additional Instructions/Restrictions: Please follow-up with your primary care provider. Please return to the emergency department if you develop any new or worsening symptoms or become concerned for your health. Clinical Impressions Clinical Impression: Chest pain Discharge ED Provider: Sal Alvarado General Adult HPI General Chief complaint: Arrhythmia/Palpitations Stated complaint: Had chest pain today and pain in the back of arm Time Seen by Provider: 09/08/22 23:29 Mode of Arrival: Family Vehicle Source of Information: Patient Limitations: No Limitations Description of Symptoms (Recalled from ER Triage Doc. by RN): 32 yo female presents with cc of intermittent chest discomfort that affects the left arm and left neck. She states its almost like its difficult to get a good breath . Reports she used to see dr loco for tachycardia and he had placed her on a beta jose but I can't take that because it makes me feel awful . Hasn't seen him in > 6 months. No sudden changes this evening, just came in to get checked out . Likens the discomfort to palpitations and likens it to a 3-4/10. Denies angina at time of triage. Denies feeling at time of triage. Denies nausea/vomiting. Denies issues with bowel/bladder. Recent activities include working in garden and being outside in the sun. NKA. 1ppd smoker. smokes marijuana. social drinker. no sick contacts History of Present Illness HPI narrative: 32-year-old female reported history of tachycardia presents with approximate 1 day of intermittent chest pain and left-sided arm pain. Patient reports that she has had the symptoms before approximately 2 years ago and had a mostly negative work-up with Dr. Loco. Reportedly had episodes of tachycardia. She was placed on a beta-jose but has not been taking it for years because it made her feel terrible . She reports no shortness of breath. Denies OCP use, no recent surgery immobilization, no blood clots history. Denies any recent fever or illness. Reports that she is currently chest pain-free. Pain is somewhat worse with movement. Related Data Home Medications Medication Instructions Recorded Confirmed doxycycline hyclate 100 mg capsule 100 mg PO BID marcenitis 09/08/22 09/08/22 suppurativa Allergies Allergy/AdvReac Type Severity Reaction Status Date / Time No Known Allergies Allergy Verified 06/16/22 16:02 [facility] Disclaimer: The information contained in this section may have been updated after the patient was seen, as this information can be updated by other users. Medical History Abnormal ECG during exercise stress test Abnormal electrocardiography Chest pain Gastroesophageal reflux disease Hepatitis C virus infection Hepatitis C virus infection cured after antiviral drug therapy Palpitations Surgical History History of local excision of skin lesion History of tonsillectomy History of tubal ligation Family History Other No significant family history Social History Smoking Status: Current every day smoker tobacco type: e-cigarettes second hand exposure: No alcohol intake: never substance use type: former substance user, marijuana and heroin current occupational status: employed Travel in the last 8 weeks: None household members: children and other housing: house current occupational exposures/hazards: No caffeine: Yes ROS Obtained: Yes All systems
[2022-09-08 23:43] LABS: Chloride 104 mmol/L (98-107); Potassium 3.6 mmoL/L (3.5-5.1); Sodium 140 mmol/L (136-145)
[2022-09-08 23:45] LABS: Blood Urea Nitrogen 17 mg/dl (7-17); Creatinine Clearance Estimated 146 mL/min (50-200); Estimated Glomerular Filt Rate 96 ml/min (>60); GFR (African American) 117 ML/MIN (>60)
[2022-09-08 23:46] LABS: Alanine Aminotransferase 17 U/L (12-78); Albumin Level 4.4 g/dl (3.5-5.0); Albumin/Globulin Ratio 1.3 (1.1-1.8); Alkaline Phosphatase 85 U/L (38-126); Anion Gap 9.6 mEq/L (5-15); Aspartate Amino Transferase 23 U/L (14-36); Bilirubin,Total 0.4 mg/dl (0.2-1.3); Carbon Dioxide 30 mmol/L (22.0-30.0); Globulin 3.4 g/dL (1.3-3.2); Glucose 97 mg/dl (74-100); Total Protein,Serum 7.8 g/dl (6.3-8.2)
[2022-09-08 23:58] LABS: Troponin I < 0.01 ng/ml (0.00-0.034)
[2022-09-09] VITALS (7 sets, daily range): BP systolic 108–122; BP diastolic 71–81; PULSE 67–81; RESP 12–17; TEMP 36.7; O2SAT 96–99
--- NOTE | 2022-09-09 00:08 | PC.NURSE ---
Rounded on pt. No needs at this time.
--- NOTE | 2022-09-09 02:03 | PC.NURSE ---
Second trop drawn and sent to lab
[2022-09-09 02:32] LABS: Troponin I < 0.01 ng/ml (0.00-0.034)
== END 2022-09-09 02:55 | disposition home or self-care (01) ==
PROVIDERS: Emergency Provider Emergency Medicine; PCP Emergency Medicine
DX: R07.9 Chest pain, unspecified (principal); M54.2 Cervicalgia; M79.602 Pain in left arm; K21.9 Gastro-esophageal reflux disease without esophagitis
CPT/HCPCS: 71046; 80053; 84484; 85025; 93005; 99285

== ENCOUNTER → 2022-12-21 10:22 | Outpatient (POV) | payer MEDICAID, SELFPAY | PROVIDERS: Visit Provider Specialist/Technologist | DX: Z00.00 Encounter for general adult medical examination without abnormal findings (principal) ==

== ENCOUNTER 2023-01-15 12:49 | Emergency (ER) | payer MEDICAID, SELFPAY ==
[2023-01-15 14:15] VITALS: BP 133/85; PULSE 74; RESP 18; TEMP 37; O2SAT 98; BMI 26.8
--- NOTE | 2023-01-15 14:29 | EXP.UTC ---
Discharge Plan Disposition Patient Disposition: Home, Self-Care Condition: Good Prescriptions Prescriptions: No Action fluticasone propionate 50 mcg/actuation spray,suspension intranasal .PRN azelastine 137 mcg (0.1 %) aerosol,spray 2 spray intranasal BID Qty: 30 3RF Rx Instructions: administer into each nostril levocetirizine [Xyzal] 5 mg tablet 5 mg PO DAILY Qty: 90 3RF doxycycline hyclate 100 mg capsule 100 mg PO BID Referrals Follow up/Referrals: Isabelle Figueroa PA [Primary Care Provider] - See instructions Activity Restrictions/Add. Instructions Additional Instructions/Restrictions: Monitor temperature. Seek treatment if fever develops. Follow-up immediately if new or worse symptoms worsen or no noticeable improvement over 48 hours. Increase fluids such as water, Gatorade, Powerade, juice or Pedialyte with limited formula/dietary in children No food is okay as long as you are drinking. Once ready to eat start bland such as bananas, rice, applesauce, toast. Contagious until no diarrhea, vomiting, fever times 48 hours without medication Avoid antidiarrheals unless told otherwise. Best to let the virus run its course. Follow-up immediately for new or worsening symptoms or no noticeable improvement over the next 48 hours. Clinical Impressions Clinical Impression: Vomiting Qualifiers: Vomiting type: unspecified Nausea presence: with nausea Qualified Code(s): R11.2 - Nausea with vomiting, unspecified Stand Alone Forms Stand Alone Forms: Work/School Release [facility]Jonatan [facility] [place] H[place] General Stated complaint: vomiting,fever,headache Mode of Arrival: Ambulatory Source of Information: Patient Limitations: No Limitations Time Seen by Provider: 01/15/23 14:29 Description of Symptoms (Recalled from Triage Doc. by RN): vomiting and slight head ache HEENT Symptoms (Recalled from RN notes): Yes Resp Symptoms (Recalled from RN notes): No Skin Symptoms (Recalled from RN notes): No MS Symptoms (Recalled from RN notes): No Functional Status (Recalled from RN notes): n/a History of Present Illness Provider Complaint: 32 yr old female presents for vomiting, headache and abd cramps, family have the same symptoms Related Data Home Medications Medication Instructions Recorded Confirmed fluticasone propionate 50 intranasal .PRN 11/15/22 12/21/22 mcg/actuation nasal spray,suspension doxycycline hyclate 100 mg capsule 100 mg PO BID 01/15/23 01/15/23 Previous Rx's Medication Instructions Recorded azelastine 137 mcg (0.1 %) nasal 2 spray intranasal BID allergy 11/15/22 spray aerosol symptoms #30 mL levocetirizine 5 mg tablet (Xyzal) 5 mg PO DAILY allergy symptoms #90 11/15/22 tabs Allergies Allergy/AdvReac Type Severity Reaction Status Date / Time amoxicillin [From Augmentin] AdvReac Mild Diarrhea Verified 01/15/23 14:27 clavulanic acid AdvReac Mild Diarrhea Verified 01/15/23 14:27 [From Augmentin] Worker's Comp Is this a Worker's Comp case?: No [facility] Disclaimer: The information contained in this section may have been updated after the patient was seen, as this information can be updated by other users. 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
[2023-01-15 14:43] VITALS: BP 133/85; PULSE 74; RESP 18; TEMP 37; O2SAT 98
== END 2023-01-15 14:43 | disposition home or self-care (01) ==
PROVIDERS: Emergency Provider Nurse Practitioner Family; PCP Student in an Organized Health Care Education/Training Program
DX: R10.819 Abdominal tenderness, unspecified site (principal); R11.2 Nausea with vomiting, unspecified; R51.9 Headache, unspecified; R50.9 Fever, unspecified; F17.290 Nicotine dependence, other tobacco product, uncomplicated; K21.9 Gastro-esophageal reflux disease without esophagitis
CPT/HCPCS: 99212; 99213; G0463

== ENCOUNTER 2023-02-10 13:10 | Emergency (ER) | payer MEDICAID, SELFPAY ==
[2023-02-10 13:11] VITALS: BP 131/91; PULSE 88; RESP 16; TEMP 37.1; O2SAT 100; BMI 26.1
--- NOTE | 2023-02-10 13:33 | ED_ITS ---
Discharge Plan Disposition Patient Disposition: Home, Self-Care Condition: Good Prescriptions Prescriptions: No Action fluticasone propionate 50 mcg/actuation spray,suspension intranasal .PRN azelastine 137 mcg (0.1 %) aerosol,spray 2 spray intranasal BID Qty: 30 3RF Rx Instructions: administer into each nostril levocetirizine [Xyzal] 5 mg tablet 5 mg PO DAILY Qty: 90 3RF doxycycline hyclate 100 mg capsule 100 mg PO BID Referrals Follow up/Referrals: Isabelle Figueroa PA [Primary Care Provider] - See instructions Activity Restrictions/Add. Instructions Additional Instructions/Restrictions: You were evaluated in the ER today for right foot pain. You have follow-up for hammertoe on February 18. Go to this appointment. Take Tylenol or ibuprofen if needed for pain, do not exceed the recommended doses on the bottles. Make an appointment with your primary care physician for reevaluation as well. Return to the ER with new, worsening, or otherwise concerning symptoms. Clinical Impressions Clinical Impression: Foot pain, right Discharge ED Provider: Elizabeth Heller Adult HPI General Chief complaint: PAIN Stated complaint: right foot pain, no accident Time Seen by Provider: 02/10/23 13:24 Mode of Arrival: Ambulatory Source of Information: Patient Limitations: No Limitations Description of Symptoms (Recalled from ER Triage Doc. by RN): pt presents to ED with c/o pain in right pinky toe. pt has known hammer toe on that right pinky toe. pt has been seen by podiatry. pt reports she has recently switched to a new foot doctor and has an appt on feb 18 History of Present Illness HPI narrative: This 33-year-old female presents to the ER with concerns of right foot and pinky toe pain. Patient has been seen by podiatry and has a history of hammertoe. She states she is having progressive pain because of buildup of skin on the inside of her right pinky toe and is requesting that I cut off that extra skin. She states she has follow-up with podiatry on February 18. She has not sustained any recent injuries and her pain has just been slowly progressive. Patient denies any fevers or swelling. Related Data Home Medications Medication Instructions Recorded Confirmed fluticasone propionate 50 intranasal .PRN 11/15/22 01/26/23 mcg/actuation nasal spray,suspension doxycycline hyclate 100 mg capsule 100 mg PO BID 01/15/23 01/26/23 Previous Rx's Medication Instructions Recorded azelastine 137 mcg (0.1 %) nasal 2 spray intranasal BID allergy 11/15/22 spray aerosol symptoms #30 mL levocetirizine 5 mg tablet (Xyzal) 5 mg PO DAILY allergy symptoms #90 11/15/22 tabs Allergies Allergy/AdvReac Type Severity Reaction Status Date / Time amoxicillin [From Augmentin] AdvReac Mild Diarrhea Verified 01/26/23 10:45 clavulanic acid AdvReac Mild Diarrhea Verified 01/26/23 10:45 [From Augmentin] PFSH [facility] Disclaimer: The information contained in this section may have been updated after the patient was seen, as this information can be updated by other users. Medical History (Updated 02/10/23 @ 13:33 by Elizabeth Heller MD) Abnormal ECG during exercise stress test Abnormal electrocardiography Chest pain Dysfunction of eustachian tube Ear itching Ear itching Gastroesophageal reflux disease Hepatitis C virus infection Hepatitis C virus infection cured after antiviral drug therapy Otitis media Palpitations Post-nasal drainage Surgical History History of local excision of skin lesion History of tonsillectomy History of tubal ligation Family History Other No significant family history Social History Smoking Status: Current every day smoker tobacco type: e-cigarettes second hand exposure: No alcohol intake: never substance use type: former substance user, marijuana and heroin current occupational status: employed Travel in the last 8 weeks: None household members: children and other housing: house current occupational exposures/hazards: No caffeine: Yes ROS Obtained: Yes All systems reviewed & no additional complaints except as documented Constitutional Constitutional: Denies fever(s) Musculoskeletal Musculoskeletal: Reports arthralgias Comments: Right pinky toe/foot pain without swelling or redness Physical Exam General General appearance: alert and in no apparent distress Head Head exam: atraumatic and normocephalic Eye Eye exam: Present PERRL and EOMI ENT ENT exam: Present mucous membranes moist Neck Neck exam: Present normal inspection and full ROM Respiratory Respiratory exam: Absent respiratory distress or stridor Cardiovascular Cardiovascular exam: Present regular rate and normal rhythm Extremities Exam Extremities exam: Present full ROM and other (Tenderness of right pinky toe and fourth digit on the right foot, thickened skin of the right medial pinky toe, no ulceration on the fourth digit from this thickened skin, tenderness proximally in the foot without deformity, swelling, redness, bruising, or other signs of injury.) Neurological Exam Neurological exam: Present alert and oriented X3; Absent motor sensory deficit Psychiatric Psychiatric exam: Present normal affect and normal mood Skin Skin exam: Present warm and dry Medical Decision Making Ben Inquiry Pt receiving controlled substance: No Vital Signs: 02/10/23 13:11 Temperature 98.8 F Temperature Source Oral Pulse Rate [Left Radial] 88 Respiratory Rate 16 Blood Pressure [Right Arm] 131/91 H Blood Pressure Mean [Right Arm] 104 02 Sat by Pulse Oximetry 100 Oxygen Delivery Method Room Air Medical Decision Narrative: In summary this 33-year-old female presents to the ER with concerns of right foot pain. Physical exam notable for tenderness and thickened skin on the right pinky toe with tenderness radiating up the right foot without deformity, swelling, redness, bruising, or other signs of injury. Patient states this has been slowly progressing. Differential diagnosis includes but is not limited to hammertoe, muscle spasm. I considered fracture or other acute osseous injury however patient does not have history consistent with this or findings on physical exam consistent with it. She already has follow-up with podiatry on February 18. Patient was requesting that I use a scalpel to shave off some skin between the toes, however given there is no sign of skin breakdown, no skin ulceration, and no signs of infection, I do not believe it is appropriate for me to perform any procedure on this location at this time. I do not want to risk introducing infection or other injury with patient having upcoming podiatry appointment. Patient is comfortable with this. I made recommendations on other symptomatic management, follow-up, and strict return precautions for the ER. She indicated understanding and the patient was discharged in stable condition. Critical Care Critical Care Time Critical Care Time: No
[2023-02-10 13:42] VITALS: BP 131/91; PULSE 88; RESP 16; TEMP 37.1; O2SAT 100
== END 2023-02-10 13:43 | disposition home or self-care (01) ==
PROVIDERS: Emergency Provider Emergency Medicine; PCP Student in an Organized Health Care Education/Training Program
DX: M79.671 Pain in right foot (principal); F17.290 Nicotine dependence, other tobacco product, uncomplicated
CPT/HCPCS: 99282

== ENCOUNTER 2023-04-19 17:50 | Outpatient (CLI) | payer MEDICAID, SELFPAY | END 2023-04-19 23:59 | LOC: LAB.DROPOF 17:51 | PROVIDERS: PCP Student in an Organized Health Care Education/Training Program; Visit Provider Student in an Organized Health Care Education/Training Program | DX: J02.9 Acute pharyngitis, unspecified (principal) | CPT/HCPCS: 87070 ==

== ENCOUNTER 2023-05-01 08:05 | Emergency (ER) | payer MEDICAID, SELFPAY ==
[2023-05-01 08:06] VITALS: BP 146/94; PULSE 99; RESP 14; TEMP 36.5; O2SAT 100; BMI 22.9
[2023-05-01 08:16] VITALS: BP 160/102; PULSE 99; O2SAT 99
--- NOTE | 2023-05-01 08:21 | HMH.EDGENADL ---
Discharge Plan Disposition Patient Disposition: Home, Self-Care Condition: Good Prescriptions Prescriptions: New naproxen 500 mg tablet 500 mg PO BID PRN (Reason: pain) Qty: 20 0RF methocarbamol 500 mg tablet 500 mg PO Q8H PRN (Reason: pain) Qty: 20 0RF No Action Vraylar 1.5 mg capsule 1.5 mg PO DAILY Qty: 30 1RF fluticasone propionate 50 mcg/actuation spray,suspension intranasal .PRN azelastine 137 mcg (0.1 %) aerosol,spray 2 spray intranasal BID Qty: 30 3RF Rx Instructions: administer into each nostril levocetirizine [Xyzal] 5 mg tablet 5 mg PO DAILY Qty: 90 3RF methylprednisolone 4 mg tablets,dose pack See Rx Instructions PO PER PKG DIR Qty: 21 0RF Rx Instructions: PO PER PKG DIR albuterol sulfate 90 mcg/actuation HFA aerosol inhaler 1 inh inhalation QID Qty: 8.5 3RF doxycycline hyclate 100 mg capsule 100 mg PO BID Referrals Follow up/Referrals: Isabelle Figueroa PA [Primary Care Provider] - See instructions Activity Restrictions/Add. Instructions Additional Instructions/Restrictions: You were evaluated in the emergency department today. Please pear picker your prescriptions and take them as needed for pain. I also recommend adding Tylenol every 4 hours as needed. Follow-up closely with your primary care provider over the next 3 days for reassessment, as if her symptoms are not improving, you may benefit from referral to either orthopedics or physical therapy. Return to the emergency department for new or worsening symptoms. Clinical Impressions Clinical Impression: Left shoulder strain Stand Alone Forms Stand Alone Forms: Work/School Release Instructions Patient Instructions: DI for Cervical Radiculopathy, DI for Acute Pain -- Adult, DI for Shoulder Pain Discharge ED Provider: Nanette Dawson General Adult HPI General Chief complaint: PAIN Stated complaint: Lt shoulder pain, no accident Time Seen by Provider: 05/01/23 08:10 Mode of Arrival: Ambulatory Source of Information: Patient Limitations: No Limitations Description of Symptoms (Recalled from ER Triage Doc. by RN): pt presents to ED with c/o left shoulder pain, ongoing for the past two days. pt reports she may have slept on her arm wrong. pain radiating down into arm and neck. 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 History of Present Illness HPI narrative: This patient is a 33-year-old female with history of anxiety and tobacco dependence presenting with concern for atraumatic left shoulder pain. She states that she woke up Tuesday morning with left shoulder pain between her shoulder blade and spine that radiates down her left arm. She states that she thought maybe she slept on it wrong, however the pain has been persistent to the point where she did not feel like going out last night or going to work today. She applied a lidocaine patch with minimal improvement. She denies any recent falls, injuries, strain/sprains, or other concerns. 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 She denies any other concerns or complaints and denies any history of drug use. She denies any numbness or other concerns. Related Data Home Medications Medication Instructions Recorded Confirmed fluticasone propionate 50 intranasal .PRN 11/15/22 04/19/23 mcg/actuation nasal spray,suspension doxycycline hyclate 100 mg capsule 100 mg PO BID 01/15/23 04/19/23 Previous Rx's Medication Instructions Recorded azelastine 137 mcg (0.1 %) nasal 2 spray intranasal BID allergy 11/15/22 spray aerosol symptoms #30 mL levocetirizine 5 mg tablet (Xyzal) 5 mg PO DAILY allergy symptoms #90 11/15/22 tabs albuterol sulfate 90 mcg/actuation 1 inh inhalation QID #8.5 grams 04/19/23 aerosol inhaler cariprazine 1.5 mg capsule 1.5 mg PO DAILY #30 caps 04/19/23 (Vraylar) methylprednisolone 4 mg tablets in See Rx Instructions PO PER PKG DIR 04/19/23 a dose pack #21 tabs methocarbamol 500 mg tablet 500 mg PO Q8H PRN pain #20 tabs 05/01/23 naproxen 500 mg tablet 500 mg PO BID PRN pain #20 tabs 05/01/23 Allergies Allergy/AdvReac Type Severity Reaction Status Date / Time amoxicillin [From Augmentin] AdvReac Mild Diarrhea Verified 04/19/23 13:53 clavulanic acid AdvReac Mild Diarrhea Verified 04/19/23 13:53 [From Augmentin] [facility] Disclaimer: The information contained in this section may have been updated after the patient was seen, as this information can be updated by other users. Medical History Generalized anxiety disorder Heroin use disorder, severe, in sustained remission Mood disorder Ear itching Dysfunction of eustachian tube Post-nasal drainage Ear itching Otitis media Abnormal electrocardiography Palpitations Abnormal ECG during exercise stress test Hepatitis C virus infection cured after antiviral drug therapy Chest pain Gastroesophageal reflux disease Hepatitis C virus infection Surgical History History of local excision of skin lesion History of tubal ligation History of tonsillectomy Family History Other No significant family history Social History Smoking Status: Current every day smoker tobacco type: cigarettes packs per day: 1 and e-cigarettes second hand exposure: No alcohol intake: never counseling given: No substance use type: former substance user, marijuana and heroin counseling given: No (used to use heroin; only THC now) current occupational status: employed Travel in the last 8 weeks: None adopted: No caregiver/support person: Yes (for her 2 kids) foster care: No household members: children and other housing: house lives independently: Yes marital status: single number of children: 2 number of grandchildren: 0 education level: other details: she completed 9th grade; then dropped out current occupational exposures/hazards: No Hx Recent Travel: No sexually active: Yes caffeine: Yes physical activity: none working smoke detector in home: Yes fire extinguisher in home: No carbon monox detector in home: Yes firearms in home: No do you feel safe at home: Yes victim of physical abuse: No victim of emotional abuse: No victim of sexual abuse: No would you like helpful sources: No ROS Obtained: Yes All systems reviewed & no additional complaints except as documented Physical Exam General General appearance: alert and in no apparent distress Head Head exam: atraumatic and normocephalic Eye Eye exam: Present normal appearance, PERRL and EOMI ENT ENT exam: Present normal exam, normal oropharynx, mucous membranes moist and normal external ear exam Neck Neck exam: Present normal inspection, full ROM and trachea midline; Absent tenderness Chest Chest inspection: Present normal inspection and symmetric chest wall rise; Absent tenderness Respiratory Respiratory exam: Present normal lung sounds bilaterally; Absent respiratory distress, wheezes, stridor or accessory muscle use Cardiovascular Cardiovascular exam: Present regular rate and normal rhythm Abdominal Exam Abdominal exam: Present soft; Absent distention, tenderness or guarding Extremities Exam Extremities exam: Present normal inspection, full ROM and normal capillary refill; Absent tenderness or edema Back Exam Back exam: Present full ROM, tenderness, muscle spasm (Left paraspinal in the upper thoracic spine) and paraspinal tenderness (Upper thoracic spine); Absent vertebral tenderness Neurological Exam Neurological exam: Present alert, oriented X3, CN II-XII intact and normal gait; Absent motor sensory deficit Psychiatric Psychiatric exam: Present normal affect and normal mood Skin Skin exam: Present warm and dry Medical Decision Making Medical Records Medical records reviewed: Yes I reviewed the patient's medical records. Ben Inquiry Pt receiving controlled substance: No Vital Signs: 05/01/23 08:06 05/01/23 08:16 Temperature 97.7 F Temperature Source Oral Pulse Rate 99 H Pulse Rate [Left Radial] 99 H Respiratory Rate 14 Blood Pressure 160/102 H Blood Pressure [Right Arm] 146/94 H Blood Pressure Mean 108 Blood Pressure Mean [Right Arm] 111 02 Sat by Pulse Oximetry 100 99 Oxygen Delivery Method Room Air Room Air Lab Data Lab results reviewed: Yes I reviewed the patient's lab results. Orders (Tests/Meds): ED MEDICATIONS Generic Name Dose Route Start Last Admin Trade Name Freq PRN Reason Stop Dose Admin Acetaminophen 1,000 mg 05/01/23 08:18 Acetaminophen 500mg Tab PO 05/01/23 08:19 ONCE ONE Discontinued Medications Generic Name Dose Route Start Last Admin Trade Name Freq PRN Reason Stop Dose Admin Ketorolac Tromethamine 30 mg 05/01/23 08:17 Ketorolac 30mg/Ml Vial IM 05/01/23 08:18 ONCE ONE Methocarbamol 500 mg 05/01/23 08:18 Methocarbamol 500mg Tablet PO 05/01/23 08:19 ONCE ONE Medical Decision Narrative: In summary, this patient is a 33-year-old female presenting to the Emergency Department for evaluation of atraumatic left shoulder pain radiating down her left arm. Differential diagnoses considered include but are not limited to cervical radiculopathy, thoracic lower radiculopathy, musculoskeletal strain/sprain, rotator cuff injury, neurovascular injury. Ruling out the most morbid conditions drove assessment. On exam, the patient is well-appearing and is neurovascularly intact. She has no midline vertebral, bony tenderness and no history of traumatic injury. Given this, I do not feel that imaging would drying rack changer, so no imaging was ordered. She has no history of risk factors for epidural abscess or other concern per the patient. I feel she likely has radiculopathy of her left arm. At this time, feel supportive management is best course of action with anti-inflammatories and muscle relaxers. Given this, patient was given IM Toradol as well as oral Robaxin. I feel that she is appropriate for discharge with continued supportive management and close follow-up. Advised that she may benefit from referral to physical therapy/orthopedics if her symptoms continue. Strict return precautions were given, and the patient was discharged in stable condition with prescription for naproxen and Robaxin. Critical Care Critical Care Time Critical Care Time: No
[2023-05-01] MEDS: KETOROLAC 30MG/ML VIAL 30 MG IM (08:27)
[2023-05-01] MEDS: ACETAMINOPHEN 500MG TAB 1000 MG PO (08:27)
[2023-05-01] MEDS: METHOCARBAMOL 500MG TABLET 500 MG PO (08:28)
[2023-05-01 08:53] VITALS: BP 123/99; PULSE 91; RESP 16; TEMP 36.5; O2SAT 99
== END 2023-05-01 08:54 | disposition home or self-care (01) ==
PROVIDERS: Emergency Provider Emergency Medicine; PCP Student in an Organized Health Care Education/Training Program
DX: S46.012A Strain of muscle(s) and tendon(s) of the rotator cuff of left shoulder, initial encounter (principal); X50.9XXA Other and unspecified overexertion or strenuous movements or postures, initial encounter; F41.1 Generalized anxiety disorder; K21.9 Gastro-esophageal reflux disease without esophagitis; F17.210 Nicotine dependence, cigarettes, uncomplicated
CPT/HCPCS: 96372; 99283

== ENCOUNTER 2023-05-05 13:23 | Outpatient (CLI) | payer MEDICAID, SELFPAY ==
--- NOTE | 2023-05-05 13:25 | XR_ITS ---
FINAL REPORT CLINICAL HISTORY: L shoulder pain COMPARISON: None FINDINGS: LEFT SHOULDER: 3 views of the left shoulder were obtained. There is no acute fracture or dislocation. The joint spaces are intact. There is no soft tissue abnormality. IMPRESSION: No acute fracture Reviewed, Interpreted and Dictated by Tawanda Kurtz III, MD Transcribed by Alondra Johnson Authenticated and . [facility]
== END 2023-05-05 23:59 ==
LOC: RAD 13:23
PROVIDERS: PCP Student in an Organized Health Care Education/Training Program; Visit Provider Student in an Organized Health Care Education/Training Program
DX: M25.512 Pain in left shoulder (principal)
CPT/HCPCS: 73030

== ENCOUNTER 2023-05-20 08:00 | Outpatient (RCR) | payer MEDICAID, SELFPAY ==
--- NOTE | 2023-05-16 10:40 | HMH.OTOPEV ---
OT Inpatient Evaluation Rehab OT Outpatient Eval Start: 05/16/23 10:32 Freq: Status: Active Protocol: Document 05/16/23 10:32 SHANNON (Rec: 05/16/23 10:39 SHANNON [id number]) E-signed By Frances Logan, OT Outpatient Therapy Subjective History Subjective History 33 year old female referred to skilled OP OT services for L shld pain. Patient stated to have increase amount of pain in the L shld >3 weeks. On , patient had an x-ray to L shld with no acute findings . Patient recieved a cortisone shot on 05/05/23 with no relief. AROM is WFL. New diagnosis of cancer in past 12 No months? Chief Complaint Pain,Weakness Symptom Type Ache Symptoms Relieved By Nothing Symptoms Aggravated By Physical Activity Prior Functional Limitations None Current Functional Limitations Reaching,Lifting,Recreation Activity Symptom Description Constant and Continuous Level of pain today (0-10) 0 Pain scale - at its best (0-10) 0 Pain scale - at its worst (0-10) 10 Shoulder/Elbow Eval Shoulder Objective Measurements Shoulder MMT Left Shoulder Abduction Strength Grade 3+ Fair+ Shoulder Extension Strength Grade 3+ Fair+ Shoulder Flexion Strength Grade 3+ Fair+ Shoulder Horizontal Abduction Strength 3+ Fair+ Grade Infraspinatus/Teres Minor Strength Grade 3+ Fair+ Shoulder External Rotation Strength 3+ Fair+ Grade Shoulder Internal Rotation Strength 3+ Fair+ Grade Elbow Objective Measurements QuickDASH Activities Please rate your ability to do the following activities in the last week by selecting the number below the appropriate response. 1. Open a tight or new jar. Moderate difficulty 2. Do heavy call center nurse (e.g., wash Moderate difficulty [place], floors). 3. Carry a shopping bag or briefcase. No difficulty 4. Wash your back. Mild difficulty 5. Use a knife to cut food. No difficulty 6. Recreational activities in which you Severe difficulty take some force or impact through your arm, shoulder, or hand (e.g., golf, hammering, tennis, etc.). 7. During the past week, to what extent Moderately has your arm, shoulder or hand problem interfered with your normal social activities with family, friends, neighbors or groups? 8. During the past week, were you Very limited limited in your work or other regular daily activites as a result of your arm, shoulder or hand problem? 9. Arm, shoulder or hand pain. Severe 10. Tingling (pins and needles) in your Mild arm, shoulder or hand. 11. During the past week, how much Severe difficulty difficulty have you had sleeping because of the pain in your arm, shoulder or hand? Quick DASH 31 Work Module (optional) The following questions ask about the impact of your arm, shoulder or hand problem on your ability to work (including homemaking if that is your main work role). Please indicate what your job/work is: [employer] Do you work? Yes 1. Using your usual technique for your Severe difficulty work? 2. Doing your usual work because of arm, Severe difficulty shoulder or hand pain? 3. Doing your work as well as you would Severe difficulty like? 4. Spending your usual amount of time Severe difficulty doing your work? Quick Dash Work Module Score 16 OT Outpatient Assessment Impairments Problems/Impairments Impaired Strength,Impaired Lifting,Subjective C/O Pain Prognosis Rehab Potential Good Clinical Impression Consistent with Diagnosis Yes Short Term Goals Number of Weeks 2 Increase Strength Yes: Improve L UE shld strength to 4- to 4/5 throughout Decrease Subjective C/O Pain Yes: 8/10 pain at worst Improve Quick Dash Score Yes: 25 Custodial Goals Number of Weeks 4 Increase Strength Yes: Improve L UE shld strength to 4/5 throughout Decrease Subjective C/O Pain Yes: 6/10 pain at worst Improve Quick Dash Score Yes: 20 Outpatient Therapy Plan of Care Treatment Plan May Include Therapeutic Exercise Including Home Yes Exercise Program Manual Therapy Techniques Yes Therapeutic Activities to Return to Yes Previous Functional/Work Level Thermal Modalities Yes Electrical Stimulation Yes Ultrasound/Phonophoresis Yes Iontophoresis Yes Eval/Re-Eval Yes Frequency Times per week 1-2x/wk Duration Number of Weeks 4 weeks Addendums This patient is a candidate for social No or vocational rehab? Patient/Guardian verbally acknowledges Yes understanding of treatment program and consents to further treatment? Patient/Guardian verbally acknowledges Yes understanding of diagnosis, prognosis and goals for treatment? Eval Complexity OT Charge 07072 - Low Complexity PHYSICIAN CERTIFICATION: I certify the specified therapy services for Christine Webern [place] are required, authorized, and reviewed every 30 days.
== END 2023-05-20 08:05 | disposition home or self-care (01) ==
LOC: OT 08:00
PROVIDERS: Visit Provider Student in an Organized Health Care Education/Training Program
DX: M25.512 Pain in left shoulder (principal); S46.912A Strain of unspecified muscle, fascia and tendon at shoulder and upper arm level, left arm, initial encounter
CPT/HCPCS: 97010; 97014; 97140; 97165; 97530; G0283

== ENCOUNTER 2023-06-08 11:30 | Emergency (ER) | payer MEDICAID, SELFPAY ==
[2023-06-08 12:05] VITALS: BP 133/83; PULSE 77; RESP 18; TEMP 36.8; O2SAT 100; BMI 25.9
--- NOTE | 2023-06-08 12:26 | EXP.UTC ---
Discharge Plan Disposition Patient Disposition: Home, Self-Care Condition: Good Prescriptions Prescriptions: New ibuprofen 600 mg tablet 600 mg PO Q6HP PRN (Reason: Mild Pain) Qty: 30 0RF No Action Vraylar 1.5 mg capsule 1.5 mg PO DAILY Qty: 30 1RF fluticasone propionate 50 mcg/actuation spray,suspension intranasal .PRN azelastine 137 mcg (0.1 %) aerosol,spray 2 spray intranasal BID Qty: 30 3RF Rx Instructions: administer into each nostril levocetirizine [Xyzal] 5 mg tablet 5 mg PO DAILY Qty: 90 3RF albuterol sulfate 90 mcg/actuation HFA aerosol inhaler 1 inh inhalation QID Qty: 8.5 3RF meloxicam 7.5 mg tablet 7.5 mg PO QDAY Qty: 30 0RF methocarbamol 500 mg tablet 500 mg PO Q8H PRN (Reason: pain) Qty: 20 0RF Referrals Follow up/Referrals: Isabelle Figueroa PA [Primary Care Provider] - See instructions Angelique Lopez DPM [Staff Physician] - See instructions Activity Restrictions/Add. Instructions Additional Instructions/Restrictions: Rest the extremity, Elevate the extremity as tolerated while you are resting. Take ibuprofen for pain. I sent in a prescription to your pharmacy. Follow up with Dr. Lopez (podiatry). I put in a referral but you need to call her office and schedule an appointment. Follow up with your regular doctor. GO TO THE ER FOR ANY WORSENING SYMPTOMS Clinical Impressions Clinical Impression: Callus between toes, Pain in right foot Stand Alone Forms Stand Alone Forms: Work/School Release Instructions Patient Instructions: Calluses and Corns, DI for Calluses and Corns, DI for Foot Pain Discharge ED Provider: Teodoro Durand [facility] General Stated complaint: Pain in R toes Time Seen by Provider: 06/08/23 12:26 History of Present Illness Provider Complaint: She states that she has a history of having hammer toes on her right foot. This causes her right 5th toe to rub against her 4th toe and cause pain and a callus between them. She would like a referral to podiatry. Related Data Home Medications Medication Instructions Recorded Confirmed fluticasone propionate 50 intranasal .PRN 11/15/22 05/05/23 mcg/actuation nasal spray,suspension Previous Rx's Medication Instructions Recorded azelastine 137 mcg (0.1 %) nasal 2 spray intranasal BID allergy 11/15/22 spray aerosol symptoms #30 mL levocetirizine 5 mg tablet (Xyzal) 5 mg PO DAILY allergy symptoms #90 11/15/22 tabs albuterol sulfate 90 mcg/actuation 1 inh inhalation QID #8.5 grams 04/19/23 aerosol inhaler cariprazine 1.5 mg capsule 1.5 mg PO DAILY #30 caps 04/19/23 (Vraylar) methocarbamol 500 mg tablet 500 mg PO Q8H PRN pain #20 tabs 05/01/23 meloxicam 7.5 mg tablet 7.5 mg PO QDAY #30 tabs 05/06/23 ibuprofen 600 mg tablet 600 mg PO Q6HP PRN Mild Pain #30 06/08/23 tabs Allergies Allergy/AdvReac Type Severity Reaction Status Date / Time amoxicillin [From Augmentin] AdvReac Mild Diarrhea Verified 06/08/23 12:33 clavulanic acid AdvReac Mild Diarrhea Verified 06/08/23 12:33 [From Augmentin] [facility] Disclaimer: The information contained in this section may have been updated after the patient was seen, as this information can be updated by other users. Medical History Generalized anxiety disorder Heroin use disorder, severe, in sustained remission Mood disorder Ear itching Dysfunction of eustachian tube Post-nasal drainage Ear itching Otitis media Abnormal electrocardiography Palpitations Abnormal ECG during exercise stress test Hepatitis C virus infection cured after antiviral drug therapy Chest pain Gastroesophageal reflux disease Hepatitis C virus infection Surgical History History of local excision of skin lesion History of tubal ligation History of tonsillectomy Family History Other No significant family history Social History Smoking Status: Current every day smoker tobacco type: cigarettes packs per day: 1 and e-cigarettes second hand exposure: No alcohol intake: never counseling given: No substance use type: former substance user, marijuana and heroin counseling given: No (used to use heroin; only THC now) current occupational status: employed Travel in the last 8 weeks: None adopted: No caregiver/support person: Yes (for her 2 kids) foster care: No household members: children and other housing: house lives independently: Yes marital status: single number of children: 2 number of grandchildren: 0 education level: other details: she completed 9th grade; then dropped out current occupational exposures/hazards: No Hx Recent Travel: No sexually active: Yes caffeine: Yes physical activity: none working smoke detector in home: Yes fire extinguisher in home: No carbon monox detector in home: Yes firearms in home: No do you feel safe at home: Yes victim of physical abuse: No victim of emotional abuse: No victim of sexual abuse: No would you like helpful sources: No ROS Obtained: Yes All systems reviewed & no additional complaints except as documented Constitutional Constitutional: Denies chills and Denies fever(s) Eyes Eyes: Denies eye discharge ENT Ears, Nose, Mouth, and Throat: Denies dizziness, Denies otalgia and Denies sore throat Cardiovascular Cardiovascular: Denies chest pain Respiratory Respiratory: Denies shortness of breath, Denies chest congestion, Denies cough, Denies stridor and Denies wheezing Gastrointestinal Gastrointestingal: Denies nausea or vomiting Musculoskeletal Musculoskeletal: Reports system reviewed and no additional complaints, except as documented and Denies arthralgias Integumentary/Breasts Skin/Breast: Denies rash Neurologic Neurologic: Denies dizziness and Denies paresthesias Allergic/Immunologic Allergic/Immunologic: Denies wheezing Physical Exam General General appearance: alert and in no apparent distress Head Head exam: atraumatic, normocephalic and normal inspection Eye Eye exam: Present normal appearance, PERRL and EOMI ENT ENT exam: Present normal exam, normal oropharynx, mucous membranes moist, TM's normal bilaterally and normal external ear exam Neck Neck exam: Present normal inspection, full ROM and trachea midline; Absent meningismus or lymphadenopathy Chest Chest inspection: Present normal inspection and symmetric chest wall rise; Absent tenderness Respiratory Respiratory exam: Present normal lung sounds bilaterally; Absent respiratory distress Cardiovascular Cardiovascular exam: Present regular rate and normal rhythm; Absent JVD Abdominal Exam Abdominal exam: Present soft and normal bowel sounds; Absent distention, tenderness or guarding Extremities Exam Extremities exam: Present normal inspection, full ROM and normal capillary refill; Absent calf tenderness Back Exam Back exam: Present normal inspection; Absent tenderness Neurological Exam Neurological exam: Present alert and oriented X3 Psychiatric Psychiatric exam: Present normal affect and normal mood Skin Skin exam: Present warm, dry, intact and normal color Lymphatic Lymphatic Findings: no adenopathy Medical Decision Making Medical Records Medical records reviewed: No I reviewed the patient's medical records. Ben Inquiry Pt receiving controlled substance: No
[2023-06-08 12:59] VITALS: BP 133/83; PULSE 77; RESP 18; TEMP 36.8; O2SAT 100
== END 2023-06-08 12:59 | disposition home or self-care (01) ==
PROVIDERS: Emergency Provider Nurse Practitioner Family; PCP Student in an Organized Health Care Education/Training Program
DX: M79.674 Pain in right toe(s) (principal); L84 Corns and callosities; F17.210 Nicotine dependence, cigarettes, uncomplicated
CPT/HCPCS: 99212; 99213; G0463

== ENCOUNTER 2023-07-15 11:15 | Emergency (ER) | payer MEDICAID, SELFPAY ==
[2023-07-15 11:16] VITALS: BP 129/85; PULSE 85; RESP 18; TEMP 36.7; O2SAT 100; BMI 25.7
--- NOTE | 2023-07-15 11:28 | PC.NURSE ---
DR REYES AT BEDSIDE
--- NOTE | 2023-07-15 11:33 | ED_ITS ---
Discharge Plan Disposition Patient Disposition: Left Against Medical Advice Prescriptions Prescriptions: No Action Vraylar 1.5 mg capsule 1.5 mg PO DAILY Qty: 30 1RF doxycycline hyclate 100 mg tablet 100 mg PO ONCE Qty: 30 0RF varenicline 0.5 mg (11)- 1 mg (42) tablets,dose pack See Rx Instructions PO PER PKG DIR Qty: 53 0RF Rx Instructions: PO PER PKG DIR fluticasone propionate 50 mcg/actuation spray,suspension intranasal .PRN azelastine 137 mcg (0.1 %) aerosol,spray 2 spray intranasal BID Qty: 30 3RF Rx Instructions: administer into each nostril levocetirizine [Xyzal] 5 mg tablet 5 mg PO DAILY Qty: 90 3RF albuterol sulfate 90 mcg/actuation HFA aerosol inhaler 1 inh inhalation QID Qty: 8.5 3RF pantoprazole 20 mg tablet,delayed release (DR/EC) 20 mg PO DAILY Qty: 30 1RF dicyclomine 20 mg tablet 20 mg PO BID Qty: 60 0RF meloxicam 7.5 mg tablet 7.5 mg PO QDAY Qty: 30 0RF methocarbamol 500 mg tablet 500 mg PO Q8H PRN (Reason: pain) Qty: 20 0RF ibuprofen 600 mg tablet 600 mg PO Q6HP PRN (Reason: Mild Pain) Qty: 30 0RF Referrals Follow up/Referrals: Isabelle Figueroa PA [Primary Care Provider] - See instructions Clinical Impressions Clinical Impression: Left against medical advice Instructions Patient Instructions: DI for Acute Abdominal Pain Discharge ED Provider: Nilo Rowland General Adult HPI General Chief complaint: Abdominal Pain Stated complaint: Pain in right rib area under breast Time Seen by Provider: 07/15/23 11:26 Mode of Arrival: Ambulatory Source of Information: Patient Limitations: No Limitations Description of Symptoms (Recalled from ER Triage Doc. by RN): PT REPORTS INTERMITTENT PAIN UNDER RIGHT BREAST THAT RADIATES TO BACK, WORSE AFTER EATING. HAS HAD SIMILAR EPISODES, WAS SCHEDULED FOR US, UNABLE TO KEEP APPT AND HAS NOT RESCHEDULED. PAIN BECAME WORSE YESTERDAY History of Present Illness HPI narrative: Patient is a 33-year-old female with history of hidradenitis suppurativa, hepatitis C, anxiety, GERD who presents due to abdominal pain. Patient reports for the past several months she has been having intermittent right upper quadrant abdominal pain. States it comes and goes. Current episode began yesterday. She states she does have intermittent stabbing sensation in the right upper quadrant which lasts anywhere from a few seconds to a few minutes. She has had associated nausea and vomiting. States she feels well at this time. Denies any fevers. Denies any urinary symptoms or changes in bowel movements. Last menstrual period was earlier this week. Patient states she had previously been told she may have reflux. She states she had been scheduled for a HIDA scan but she missed this appointment. Reports abdominal surgical history of tubal ligation. Related Data Home Medications Medication Instructions Recorded Confirmed fluticasone propionate 50 intranasal .PRN 11/15/22 07/15/23 mcg/actuation nasal spray,suspension Previous Rx's Medication Instructions Recorded azelastine 137 mcg (0.1 %) nasal 2 spray intranasal BID allergy 11/15/22 spray aerosol symptoms #30 mL levocetirizine 5 mg tablet (Xyzal) 5 mg PO DAILY allergy symptoms #90 11/15/22 tabs albuterol sulfate 90 mcg/actuation 1 inh inhalation QID #8.5 grams 04/19/23 aerosol inhaler methocarbamol 500 mg tablet 500 mg PO Q8H PRN pain #20 tabs 05/01/23 meloxicam 7.5 mg tablet 7.5 mg PO QDAY #30 tabs 05/06/23 ibuprofen 600 mg tablet 600 mg PO Q6HP PRN Mild Pain #30 06/08/23 tabs cariprazine 1.5 mg capsule 1.5 mg PO DAILY #30 caps 06/27/23 (Vraylar) doxycycline hyclate 100 mg tablet 100 mg PO ONCE #30 tabs 07/07/23 varenicline 0.5 mg (11)-1 mg (42) See Rx Instructions PO PER PKG DIR 07/07/23 tablets in a dose pack #53 tabs dicyclomine 20 mg tablet 20 mg PO BID #60 tabs 07/15/23 pantoprazole 20 mg tablet,delayed 20 mg PO DAILY #30 tabs 07/15/23 release Allergies Allergy/AdvReac Type Severity Reaction Status Date / Time amoxicillin [From Augmentin] AdvReac Mild Diarrhea Verified 07/15/23 15:07 clavulanic acid AdvReac Mild Diarrhea Verified 07/15/23 15:07 [From Augmentin] [facility] Disclaimer: The information contained in this section may have been updated after the patient was seen, as this information can be updated by other users. Medical History Generalized anxiety disorder Heroin use disorder, severe, in sustained remission Mood disorder Ear itching Dysfunction of eustachian tube Post-nasal drainage Ear itching Otitis media Abnormal electrocardiography Palpitations Abnormal ECG during exercise stress test Hepatitis C virus infection cured after antiviral drug therapy Chest pain Gastroesophageal reflux disease Hepatitis C virus infection Surgical History History of local excision of skin lesion History of tubal ligation History of tonsillectomy Family History Other No significant family history Social History Smoking Status: Current every day smoker tobacco type: cigarettes packs per day: 1 and e-cigarettes second hand exposure: No alcohol intake: never counseling given: No substance use type: former substance user, marijuana and heroin counseling given: No (used to use heroin; only THC now) current occupational status: employed Travel in the last 8 weeks: None adopted: No caregiver/support person: Yes (for her 2 kids) foster care: No household members: children and other housing: house lives independently: Yes marital status: single number of children: 2 number of grandchildren: 0 education level: other details: she completed 9th grade; then dropped out current occupational exposures/hazards: No Hx Recent Travel: No sexually active: Yes caffeine: Yes physical activity: none working smoke detector in home: Yes fire extinguisher in home: No carbon monox detector in home: Yes firearms in home: No do you feel safe at home: Yes victim of physical abuse: No victim of emotional abuse: No victim of sexual abuse: No would you like helpful sources: No ROS Obtained: Yes All systems reviewed & no additional complaints except as documented Physical Exam General General appearance: alert and in no apparent distress Head Head exam: atraumatic, normocephalic and normal inspection Eye Eye exam: Present normal appearance, PERRL and EOMI ENT ENT exam: Present normal exam, normal oropharynx, mucous membranes moist, TM's normal bilaterally and normal external ear exam Neck Neck exam: Present normal inspection, full ROM and trachea midline; Absent meningismus or lymphadenopathy Chest Chest inspection: Present normal inspection and symmetric chest wall rise; Absent tenderness Respiratory Respiratory exam: Present normal lung sounds bilaterally; Absent respiratory distress Cardiovascular Cardiovascular exam: Present regular rate and normal rhythm; Absent JVD Abdominal Exam Abdominal exam: Present soft and normal bowel sounds; Absent distention, tenderness or guarding Extremities Exam Extremities exam: Present normal inspection, full ROM and normal capillary refill; Absent calf tenderness Back Exam Back exam: Present normal inspection; Absent tenderness Neurological Exam Neurological exam: Present alert and oriented X3 Psychiatric Psychiatric exam: Present normal affect and normal mood Skin Skin exam: Present warm, dry, intact and normal color Lymphatic Lymphatic Findings: no adenopathy Medical Decision Making Medical Records Medical records reviewed: Yes I reviewed the patient's medical records. Ben Inquiry Pt receiving controlled substance: No Vital Signs: 07/15/23 11:16 07/15/23 12:51 07/15/23 13:10 Temperature 98.0 F 98.0 F Temperature Source Oral Oral Pulse Rate 77 77 Pulse Rate [Radial] 85 Respiratory Rate 18 13 18 Blood Pressure 122/81 128/70 Blood Pressure [Left Arm] 129/85 Blood Pressure Mean [Left Arm] 99 Blood Pressure Source Automatic Cuff Blood Pressure Source [Left Arm] Automatic Cuff Blood Pressure Position Sitting Blood Pressure Position [Left Arm] Sitting 02 Sat by Pulse Oximetry 100 100 Oxygen Delivery Method Room Air Room Air Room Air Lab Data Lab Results 07/15/23 11:38: WBC 6.5, RBC 4.26, Hgb 14.6, Hct 43.8, MCV 102.9 H, MCH 34.2 H, MCHC 33.3, RDW 14.1, Plt Count 280, MPV 8.3, Neut % (Auto) 59.1, Lymph % (Auto) 33.6, [place] % (Auto) 5.4, Eos % (Auto) 1.3, Baso % (Auto) 0.7, Neut # (Auto) 3.8, Lymph # (Auto) 2.2, [place] # (Auto) 0.4, Eos # (Auto) 0.1, Baso # (Auto) 0.0, Sodium 140, Potassium 3.7, Chloride 106, Carbon Dioxide 25, Anion Gap 12.7, BUN 16, Creatinine 0.50 L, Estimated Creat Clear 192, Estimated GFR 141, Est GFR ( Amer) 171, Glucose 98, Calcium 9.5, Total Bilirubin 0.7, AST 25, ALT 19, Alkaline Phosphatase 80, Total Protein 7.3, Albumin 4.3, Globulin 3.0, Albumin/Globulin Ratio 1.4, Lipase 39, Serum HCG, Qual Negative 07/15/23 11:38 07/15/23 11:38 Orders (Tests/Meds): ORDERS Category Date Time Status POCUS Point of Care (ER Only) Stat Exams 07/15/23 11:32 Completed US gallbladder Stat Exams 07/15/23 12:18 Completed CBC w/Auto Diff [Complete Blood Count Auto Diff] Stat Lab 07/15/23 11:38 Completed CMP [Comprehensive Metabolic Panel] Stat Lab 07/15/23 11:38 Completed HCG Qualitative, Serum Stat Lab 07/15/23 11:38 Completed Lipase Stat Lab 07/15/23 11:38 Completed Medical Decision Narrative: In summary, patient is a 33-year-old female, evaluated in the emergency department today due to right upper quadrant abdominal pain and nausea/vomiting. On arrival, patient is hemodynamically stable with normal vital signs. On examination, patient has no current abdominal tenderness or nausea, resting comfortably. Differential diagnosis includes but is not limited to cholelithiasis, choledocholithiasis, cholecystitis, gastritis, GERD, pancreatitis, hepatitis. Patient deferred pain/nausea medication as she states she feels well at this time. Workup initiated including CBC, CMP, lipase, qualitative hCG, right upper quadrant ultrasound Labs independently interpreted by me and significant for no significant findings. I considered the utility of obtaining CT, but decided against this because risks outweigh benefits. Right upper quadrant ultrasound was obtained however shortly after, patient signed out of the ED AMA, prior to reevaluation or ultrasound read. Ultrasound read returned negative for cholelithiasis and other acute findings. Critical Care Critical Care Time Critical Care Time: No
[2023-07-15 11:47] LABS: Basophils % 0.7 % (0.1-2.0); Eosinophils # 0.1 K/mm3 (0.0-0.4); Eosinophils % 1.3 % (0.1-12.0); Hematocrit 43.8 % (37.0-47.0); Hemoglobin 14.6 g/dL (12.2-16.2); Lymphocytes # 2.2 K/mm3 (0.7-4.5); Lymphocytes % 33.6 % (10-50); Mean Corpuscular HGB Conc 33.3 g/dL (31.8-35.4); Mean Corpuscular Hemoglobin 34.2 pg (27.0-31.2); Mean Corpuscular Volume 102.9 fl (81-99); Mean Platelet Volume 8.3 fl (7.4-10.4); Monocytes # 0.4 K/mm3 (0.1-1.0); Monocytes % 5.4 % (1.7-9.3); Neutrophils # 3.8 K/mm3 (1.8-7.8); Neutrophils % 59.1 % (37.0-80.0); Platelet Count 280 K/mm3 (142-424); Red Blood Count 4.26 M/mm3 (4.20-5.40); Red Cell Distribution Width 14.1 % (11.5-17.5); White Blood Count 6.5 K/mm3 (4.8-10.8)
[2023-07-15 11:54] LABS: Alanine Aminotransferase 19 U/L (12-78); Albumin Level 4.3 g/dl (3.5-5.0); Albumin/Globulin Ratio 1.4 (1.1-1.8); Alkaline Phosphatase 80 U/L (38-126); Anion Gap 12.7 mEq/L (5-15); Aspartate Amino Transferase 25 U/L (14-36); Bilirubin,Total 0.7 mg/dl (0.2-1.3); Blood Urea Nitrogen 16 mg/dl (7-17); Calcium 9.5 mg/dl (8.4-10.2); Carbon Dioxide 25 mmol/L (22.0-30.0); Chloride 106 mmol/L (98-107); Creatinine Clearance Estimated 192 mL/min (50-200); Estimated Glomerular Filt Rate 141 ml/min (>60); GFR (African American) 171 ML/MIN (>60); Glucose 98 mg/dl (74-100); Lipase 39 U/L (23-300); Potassium 3.7 mmoL/L (3.5-5.1); Sodium 140 mmol/L (136-145); Total Protein,Serum 7.3 g/dl (6.3-8.2)
[2023-07-15 12:01] LABS: HCG Qualitative, Serum Negative (Negative)
--- NOTE | 2023-07-15 12:15 | PC.NURSE ---
ultrasound aware of imaging
--- NOTE | 2023-07-15 12:18 | US_ITS ---
FINAL REPORT TECHNIQUE: Multiple transverse and longitudinal images CLINICAL HISTORY: RUQ PAIN COMPARISON: 12/08/2021 FINDINGS: The gallbladder shows no wall thickening, distention or stone disease. No biliary ductal dilatation is appreciated. No fluid collections are seen. Limited portions of the right liver are unremarkable. Limited portions of the right kidney are unremarkable. IMPRESSION: 1. No evidence of cholelithiasis 2. No evidence of biliary obstruction Reviewed, Interpreted and Dictated by Junie Lopez MD Transcribed by Nuria Stratton Authenticated and [facility]
--- NOTE | 2023-07-15 12:28 | PC.NURSE ---
pt transported to ultrasound.
--- NOTE | 2023-07-15 12:47 | PC.NURSE ---
pt returned from ultrasound.
[2023-07-15 12:51] VITALS: BP 122/81; PULSE 77; RESP 13; O2SAT 100
[2023-07-15 13:10] VITALS: BP 128/70; PULSE 77; RESP 18; TEMP 36.7; O2SAT 100
== END 2023-07-15 13:10 | disposition left against medical advice (07) ==
PROVIDERS: Emergency Provider Student in an Organized Health Care Education/Training Program; PCP Student in an Organized Health Care Education/Training Program
DX: R10.11 Right upper quadrant pain (principal); R11.2 Nausea with vomiting, unspecified
CPT/HCPCS: 76705; 80053; 83690; 84703; 85025; 99284

== ENCOUNTER 2023-10-04 10:06 | Emergency (ER) | payer MEDICAID, SELFPAY ==
--- NOTE | 2023-10-04 11:04 | ED_ITS ---
Discharge Plan Disposition Patient Disposition: Home, Self-Care Condition: Good Prescriptions Prescriptions: New doxycycline hyclate 100 mg capsule 100 mg PO Q12 10 Days Qty: 20 0RF mupirocin 2 % ointment 1 applic topical TID 7 Days Qty: 15 0RF No Action doxycycline hyclate 100 mg tablet 100 mg PO ONCE Qty: 20 0RF fluticasone propionate 50 mcg/actuation spray,suspension intranasal .PRN azelastine 137 mcg (0.1 %) aerosol,spray 2 spray intranasal BID Qty: 30 3RF Rx Instructions: administer into each nostril levocetirizine [Xyzal] 5 mg tablet 5 mg PO DAILY Qty: 90 3RF albuterol sulfate 90 mcg/actuation HFA aerosol inhaler 1 inh inhalation QID Qty: 8.5 3RF urea 40 % cream 1 applic topical BID 30 Days Qty: 28 3RF Vraylar 1.5 mg capsule 1.5 mg PO DAILY Qty: 30 1RF pantoprazole 20 mg tablet,delayed release (DR/EC) 20 mg PO DAILY Qty: 30 1RF dicyclomine 20 mg tablet 20 mg PO BID Qty: 60 0RF meloxicam 7.5 mg tablet 7.5 mg PO QDAY Qty: 30 0RF methocarbamol 500 mg tablet 500 mg PO Q8H PRN (Reason: pain) Qty: 20 0RF ibuprofen 600 mg tablet 600 mg PO Q6HP PRN (Reason: Mild Pain) Qty: 30 0RF Referrals Follow up/Referrals: Matt Mcbride DO [Primary Care Provider] - See instructions Activity Restrictions/Add. Instructions Additional Instructions/Restrictions: Keep the affected area clean and dry. Follow up with your regular doctor. Take the antibiotics as directed and apply the topical antibiotics as directed. Apply warm wet compresses to the affected area three or four times per day. GO TO THE ER FOR ANY WORSENING SYMPTOMS Clinical Impressions Clinical Impression: Hidradenitis suppurativa Stand Alone Forms Stand Alone Forms: Work/School Release Instructions Patient Instructions: Hidradenitis Suppurativa Print Language Print Language: Belizean Discharge ED Provider: Teodoro Durand [facility] General Stated complaint: hidradenitis suppurativa Time Seen by Provider: 10/04/23 11:04 History of Present Illness Provider Complaint: She states that she has a history of hs. She currently has a red swollen area on her left groin. She usually takes doxycycline for her out breaks Related Data Home Medications ?Medication ?Instructions ?Recorded ?Confirmed fluticasone propionate 50 intranasal .PRN 11/15/22 08/25/23 mcg/actuation nasal spray,suspension Previous Rx's ?Medication ?Instructions ?Recorded azelastine 137 mcg (0.1 %) nasal 2 spray intranasal BID allergy 11/15/22 spray symptoms #30 mL levocetirizine 5 mg tablet (Xyzal) 5 mg PO DAILY allergy symptoms #90 11/15/22 tabs albuterol sulfate 90 mcg/actuation 1 inh inhalation QID #8.5 grams 04/19/23 aerosol inhaler methocarbamol 500 mg tablet 500 mg PO Q8H PRN pain #20 tabs 05/01/23 meloxicam 7.5 mg tablet 7.5 mg PO QDAY #30 tabs 05/06/23 ibuprofen 600 mg tablet 600 mg PO Q6HP PRN Mild Pain #30 06/08/23 tabs dicyclomine 20 mg tablet 20 mg PO BID #60 tabs 07/15/23 pantoprazole 20 mg tablet,delayed 20 mg PO DAILY #30 tabs 07/15/23 release urea 40 % topical cream 1 applic topical BID 30 days #28 07/21/23 grams cariprazine 1.5 mg capsule 1.5 mg PO DAILY #30 caps 08/09/23 (Vraylar) doxycycline hyclate 100 mg tablet 100 mg PO ONCE #20 tabs 08/25/23 doxycycline hyclate 100 mg capsule 100 mg PO Q12 10 days #20 caps 10/04/23 mupirocin 2 % topical ointment 1 applic topical TID 7 days #15 10/04/23 grams Allergies Allergy/AdvReac Type Severity Reaction Status Date / Time amoxicillin [From Augmentin] AdvReac Mild Diarrhea Verified 08/25/23 14:53 clavulanic acid AdvReac Mild Diarrhea Verified 08/25/23 14:53 [From Augmentin] [facility] Disclaimer: The information contained in this section may have been updated after the patient was seen, as this information can be updated by other users. Medical History Generalized anxiety disorder Heroin use disorder, severe, in sustained remission Mood disorder Ear itching Dysfunction of eustachian tube Post-nasal drainage Ear itching Otitis media Abnormal electrocardiography Palpitations Abnormal ECG during exercise stress test Hepatitis C virus infection cured after antiviral drug therapy Chest pain Gastroesophageal reflux disease Hepatitis C virus infection Surgical History History of local excision of skin lesion History of tubal ligation History of tonsillectomy Family History Other No significant family history Social History Smoking Status: Current every day smoker tobacco type: cigarettes packs per day: 1 and e-cigarettes second hand exposure: No alcohol intake: never counseling given: No substance use type: former substance user, marijuana and heroin counseling given: No (used to use heroin; only THC now) current occupational status: employed Travel in the last 8 weeks: None adopted: No caregiver/support person: Yes (for her 2 kids) foster care: No household members: children and other housing: house lives independently: Yes marital status: single number of children: 2 number of grandchildren: 0 education level: other details: she completed 9th grade; then dropped out current occupational exposures/hazards: No Hx Recent Travel: No sexually active: Yes caffeine: Yes physical activity: none working smoke detector in home: Yes fire extinguisher in home: No carbon monox detector in home: Yes firearms in home: No do you feel safe at home: Yes victim of physical abuse: No victim of emotional abuse: No victim of sexual abuse: No would you like helpful sources: No ROS Obtained: Yes All systems reviewed & no additional complaints except as documented Constitutional Constitutional: Denies chills and Denies fever(s) Eyes Eyes: Denies eye discharge ENT Ears, Nose, Mouth, and Throat: Denies dizziness, Denies otalgia and Denies sore throat Cardiovascular Cardiovascular: Denies chest pain Respiratory Respiratory: Denies shortness of breath, Denies chest congestion, Denies cough, Denies stridor and Denies wheezing Gastrointestinal Gastrointestingal: Denies nausea or vomiting Musculoskeletal Musculoskeletal: Reports system reviewed and no additional complaints, except as documented and Denies arthralgias Integumentary/Breasts Skin/Breast: Reports as per HPI Neurologic Neurologic: Denies dizziness and Denies paresthesias Allergic/Immunologic Allergic/Immunologic: Denies wheezing Physical Exam General General appearance: alert and in no apparent distress Head Head exam: atraumatic, normocephalic and normal inspection Eye Eye exam: Present normal appearance, PERRL and EOMI ENT ENT exam: Present normal exam, normal oropharynx, mucous membranes moist, TM's normal bilaterally and normal external ear exam Neck Neck exam: Present normal inspection, full ROM and trachea midline; Absent meningismus or lymphadenopathy Chest Chest inspection: Present normal inspection and symmetric chest wall rise; Absent tenderness Respiratory Respiratory exam: Present normal lung sounds bilaterally; Absent respiratory distress Cardiovascular Cardiovascular exam: Present regular rate and normal rhythm; Absent JVD Abdominal Exam Abdominal exam: Present soft and normal bowel sounds; Absent distention, tenderness or guarding Extremities Exam Extremities exam: Present normal inspection, full ROM and normal capillary refill; Absent calf tenderness Back Exam Back exam: Present normal inspection; Absent tenderness Neurological Exam Neurological exam: Present alert and oriented X3 Psychiatric Psychiatric exam: Present normal affect and normal mood Skin Skin exam: Present warm, dry, intact and normal color Lymphatic Lymphatic Findings: no adenopathy Medical Decision Making Medical Records Medical records reviewed: No I reviewed the patient's medical records. Ben Inquiry Pt receiving controlled substance: No
[2023-10-04 11:05] VITALS: BP 132/81; PULSE 72; RESP 18; TEMP 36.6; O2SAT 100; BMI 25.0
[2023-10-04 11:25] VITALS: BP 132/81; PULSE 72; RESP 18; TEMP 36.6; O2SAT 100
== END 2023-10-04 11:30 | disposition home or self-care (01) ==
PROVIDERS: Emergency Provider Nurse Practitioner Family; PCP Internal Medicine
DX: L73.2 Hidradenitis suppurativa (principal)
CPT/HCPCS: 99212; 99214; G0463

== ENCOUNTER 2023-12-17 18:25 | Emergency (ER) | payer MEDICAID, SELFPAY ==
[2023-12-17 18:40] VITALS: BP 121/80; PULSE 82; RESP 18; TEMP 36.7; O2SAT 99; BMI 25.4
[2023-12-17 18:50] LABS: UTC Strep Screen (Rapid) Negative (Negative)
--- NOTE | 2023-12-17 19:15 | EXP.UTC ---
Discharge Plan Disposition Patient Disposition: Home, Self-Care Condition: Good Prescriptions Prescriptions: New azithromycin 250 mg tablet See Rx Instructions .ROUTE .COMPLEX Qty: 6 0RF Rx Instructions: For 250 mg dose pack: take 500 mg today (day 1), then 250 mg for 4 days (days 2-5) methylprednisolone [Medrol (Vipul)] 4 mg tablets,dose pack See Rx Instructions .ROUTE .COMPLEX 6 Days Qty: 21 0RF Rx Instructions: 4 mg orally ;Medrol dose taper vipul No Action doxycycline hyclate 100 mg capsule 100 mg PO Q12 10 Days Qty: 20 0RF Referrals Follow up/Referrals: Isabelle Figueroa PA [Primary Care Provider] - See instructions Activity Restrictions/Add. Instructions Additional Instructions/Restrictions: Take medication as prescribed. Inc Clinical Impressions Clinical Impression: Acute suppur left otitis media w/o spontan rupture tympanic membrane, Upper respiratory infection with cough and congestion Stand Alone Forms Stand Alone Forms: Work/School Release Instructions Patient Instructions: DI for Cough -- Adult, DI for Middle Ear Infection-Adult Print Language Print Language: Cymraes Discharge ED Provider: Senait Amaya [facility] General Stated complaint: sore throat and left ear pain Mode of Arrival: Ambulatory Source of Information: Patient Time Seen by Provider: 12/17/23 19:15 Description of Symptoms (Recalled from Triage Doc. by RN): LEFT EAR PAIN AND SORE THROAT HEENT Symptoms (Recalled from RN notes): Yes Resp Symptoms (Recalled from RN notes): Yes Skin Symptoms (Recalled from RN notes): No MS Symptoms (Recalled from RN notes): No Functional Status (Recalled from RN notes): WNL History of Present Illness Provider Complaint: Pt reports that she has had left ear bazan that goes down in her throat. She states that she has had a hard time sleeping due to her cough at night. She denies coughing up anything. Related Data Previous Rx's ?Medication ?Instructions ?Recorded doxycycline hyclate 100 mg capsule 100 mg PO Q12 10 days #20 caps 10/04/23 azithromycin 250 mg tablet See Rx Instructions PO .COMPLEX #6 12/17/23 tabs methylprednisolone 4 mg tablets in See Rx Instructions .Route 12/17/23 a dose pack (Medrol (Vipul)) .COMPLEX 6 days #21 tabs Allergies Allergy/AdvReac Type Severity Reaction Status Date / Time amoxicillin [From Augmentin] AdvReac Mild Diarrhea Verified 12/13/23 08:17 clavulanic acid AdvReac Mild Diarrhea Verified 12/13/23 08:17 [From Augmentin] Worker's Comp Is this a Worker's Comp case?: No [facility] Disclaimer: The information contained in this section may have been updated after the patient was seen, as this information can be updated by other users. Medical History Generalized anxiety disorder Heroin use disorder, severe, in sustained remission Mood disorder Ear itching Dysfunction of eustachian tube Post-nasal drainage Ear itching Otitis media Abnormal electrocardiography Palpitations Abnormal ECG during exercise stress test Hepatitis C virus infection cured after antiviral drug therapy Chest pain Gastroesophageal reflux disease Hepatitis C virus infection Surgical History History of local excision of skin lesion History of tubal ligation History of tonsillectomy Family History Other No significant family history Social History Smoking Status: Current every day smoker tobacco type: cigarettes packs per day: 1 and e-cigarettes second hand exposure: No alcohol intake: never counseling given: No substance use type: former substance user, marijuana and heroin counseling given: No (used to use heroin; only THC now) current occupational status: employed Travel in the last 8 weeks: None adopted: No caregiver/support person: Yes (for her 2 kids) foster care: No household members: children and other housing: house lives independently: Yes marital status: single number of children: 2 number of grandchildren: 0 education level: other details: she completed 9th grade; then dropped out current occupational exposures/hazards: No Hx Recent Travel: No sexually active: Yes caffeine: Yes physical activity: none working smoke detector in home: Yes fire extinguisher in home: No carbon monox detector in home: Yes firearms in home: No do you feel safe at home: Yes victim of physical abuse: No victim of emotional abuse: No victim of sexual abuse: No would you like helpful sources: No ROS Obtained: Yes All systems reviewed & no additional complaints except as documented Constitutional Constitutional: Reports system reviewed and no additional complaints, except as documented and Reports malaise Eyes Eyes: Reports system reviewed and no additional complaints, except as documented ENT Ears, Nose, Mouth, and Throat: Reports system reviewed and no additional complaints, except as documented, Reports otalgia and Reports sore throat Cardiovascular Cardiovascular: Reports system reviewed and no additional complaints, except as documented Respiratory Respiratory: Reports system reviewed and no additional complaints, except as documented and Reports non-productive cough Gastrointestinal Gastrointestingal: Reports system reviewed and no additional complaints, except as documented Genitourinary Female Genitourinary: Reports system reviewed and no additional complaints, except as documented Musculoskeletal Musculoskeletal: Reports system reviewed and no additional complaints, except as documented Integumentary/Breasts Skin/Breast: Reports system reviewed and no additional complaints, except as documented Neurologic Neurologic: Reports system reviewed and no additional complaints, except as documented Endocrine Endocrine: Reports system reviewed and no additional complaints, except as documented Hematologic/Lymphatic Henatologic/Lymphatic: Reports system reviewed and no additional complaints, except as documented Allergic/Immunologic Allergic/Immunologic: Reports system reviewed and no additional complaints, except as documented Physical Exam General General appearance: alert and in no apparent distress Head Head exam: atraumatic and normocephalic Eye Eye exam: Present normal appearance ENT ENT exam: Present mucous membranes moist Expanded ENT Exam External ear exam: Present normal external inspection TM/Canal exam: Left TM: erythema and effusion Nasal speculum exam: Bilateral: normal Mouth exam: Present normal external inspection Teeth exam: Present normal inspection Throat exam: Present tonsillar erythema Neck Neck exam: Present normal inspection Chest Chest inspection: Present normal inspection and symmetric chest wall rise Respiratory Respiratory exam: Present wheezes and other Expanded Respiratory Exam Location: Left: wheezes and rhonchi, Right: wheezes and rhonchi, Upper: wheezes and rhonchi and Lower: wheezes and rhonchi Cardiovascular Cardiovascular exam: Present regular rate and normal rhythm Abdominal Exam Abdominal exam: Present soft and normal bowel sounds Extremities Exam Extremities exam: Present normal inspection Back Exam Back exam: Present normal inspection Neurological Exam Neurological exam: Present alert and oriented X3 Psychiatric Psychiatric exam: Present normal affect and normal mood Skin Skin exam: Present warm, dry and intact Lymphatic Lymphatic Findings: no adenopathy Medical Decision Making Medical Records Screening: Per USPSTF and CDC recommendations, given the prevalence of disease in our region, it is our hospital?s policy to screen for HIV and viral Hepatitis for all patients aged 18 and over and those with ongoing risk factors. Ben Inquiry Pt receiving controlled substance: No Ben was queried for this patient: No Vital Signs: 12/17/23 18:40 Temperature 98.0 F Temperature Source Oral Pulse Rate [Left Brachial] 82 Respiratory Rate 18 Blood Pressure [Left Arm] 121/80 Blood Pressure Mean [Left Arm] 93 02 Sat by Pulse Oximetry 99 Lab Data Lab results reviewed: Yes I reviewed the patient's lab results. Lab Results 12/17/23 18:43: Strep Scn Rapid Clinic Negative Orders (Tests/Meds): ORDERS Category Date Time Status Strep Screen Confirmation Stat Micro 12/17/23 18:43 Received
[2023-12-17 19:40] VITALS: BP 121/80; PULSE 82; RESP 18; TEMP 36.7
== END 2023-12-17 19:41 | disposition home or self-care (01) ==
PROVIDERS: Emergency Provider Nurse Practitioner Family; PCP Student in an Organized Health Care Education/Training Program
DX: H66.012 Acute suppurative otitis media with spontaneous rupture of ear drum, left ear (principal); J06.9 Acute upper respiratory infection, unspecified
CPT/HCPCS: 87880; 99213; G0381

== ENCOUNTER 2024-01-02 12:22 | Emergency (ER) | payer MEDICAID, SELFPAY ==
[2024-01-02 13:40] VITALS: BP 134/78; PULSE 74; RESP 18; TEMP 36.9; O2SAT 99; BMI 24.9
--- NOTE | 2024-01-02 13:54 | EXP.UTC ---
Discharge Plan Disposition Patient Disposition: Home, Self-Care Condition: Good Prescriptions Prescriptions: No Action Vraylar 1.5 mg capsule 1.5 mg PO DAILY Qty: 30 1RF doxycycline monohydrate 100 mg capsule 100 mg PO DIRECTED Vraylar 1.5 mg capsule 1.5 mg PO DIRECTED Referrals Follow up/Referrals: Isabelle Figueroa PA [Primary Care Provider] - See instructions Activity Restrictions/Add. Instructions Additional Instructions/Restrictions: *Monitor Temp, Over the counter Motrin or Tylenol as directed/as needed Tylenol every 4 hours and Motrin every 6 hours (as long as your family doctor has told you that you can take it) for fever or pain. and straight to ER if unable to lower temp less than 101.0 after medication given *Warm salt water gargles may help to soothe the throat *Throat Lozenges? *Warm fluids like tea with honey may help to soothe the throat? *Sleep elevated *Humidifier/Vaporizer *Your throat swab was sent for culture. Those results are typically sent to your primary care. Be sure to follow up in 2-3 days with your family doctor/primary care physician if no improvement so they can review those result and treat if necessary. If you don?t have a primary care doctor, I recommend you get one but in the mean time, you will have to return to a walk in clinic Follow up IMMEDIATELY for new or worsening symptoms or no Noticeable improvement over the next 48-72 hours. 911 for difficulty breathing or swallowing Clinical Impressions Clinical Impression: Viral upper respiratory infection Stand Alone Forms Stand Alone Forms: Work/School Release Instructions Patient Instructions: DI for Viral Upper Respiratory Infection -- Adult Print Language Print Language: [place]ican Discharge ED Provider: Yolis Murphy [facility] General Stated complaint: vomiting, aches, cough Mode of Arrival: Ambulatory Source of Information: Patient Time Seen by Provider: 01/02/24 13:55 Description of Symptoms (Recalled from Triage Doc. by RN): COUGH, EARS, THROAT, BODY ACHES, NO TASTE OR SMELL, VOMITTED X1 HEENT Symptoms (Recalled from RN notes): Yes Resp Symptoms (Recalled from RN notes): Yes Skin Symptoms (Recalled from RN notes): No MS Symptoms (Recalled from RN notes): No Functional Status (Recalled from RN notes): WNL History of Present Illness Provider Complaint: Patient states that she vomited once on tuesday but she since yesterday she has been having body aches, chills, headache, nasal congestion and sore throat so today she came in to get checked Related Data Home Medications ?Medication ?Instructions ?Recorded ?Confirmed cariprazine 1.5 mg capsule 1.5 mg PO DIRECTED 01/02/24 01/02/24 (Vraylar) doxycycline monohydrate 100 mg 100 mg PO DIRECTED 01/02/24 01/02/24 capsule Previous Rx's ?Medication ?Instructions ?Recorded cariprazine 1.5 mg capsule 1.5 mg PO DAILY #30 caps 12/28/23 (Vraylar) Allergies Allergy/AdvReac Type Severity Reaction Status Date / Time amoxicillin (From Augmentin) AdvReac Mild Diarrhea Verified 12/13/23 08:17 clavulanic acid (From AdvReac Mild Diarrhea Verified 12/13/23 08:17 Augmentin) Worker's Comp Is this a Worker's Comp case?: No [facility] Disclaimer: The information contained in this section may have been updated after the patient was seen, as this information can be updated by other users. Medical History Generalized anxiety disorder Heroin use disorder, severe, in sustained remission Mood disorder Ear itching Dysfunction of eustachian tube Post-nasal drainage Ear itching Otitis media Abnormal electrocardiography Palpitations Abnormal ECG during exercise stress test Hepatitis C virus infection cured after antiviral drug therapy Chest pain Gastroesophageal reflux disease Hepatitis C virus infection Surgical History History of local excision of skin lesion History of tubal ligation History of tonsillectomy Family History Other No significant family history Social History Smoking Status: Current every day smoker tobacco type: cigarettes packs per day: 1 and e-cigarettes second hand exposure: No alcohol intake: never counseling given: No substance use type: former substance user, marijuana and heroin counseling given: No (used to use heroin; only THC now) current occupational status: employed Travel in the last 8 weeks: None adopted: No caregiver/support person: Yes (for her 2 kids) foster care: No household members: children and other housing: house lives independently: Yes marital status: single number of children: 2 number of grandchildren: 0 education level: other details: she completed 9th grade; then dropped out current occupational exposures/hazards: No Hx Recent Travel: No sexually active: Yes caffeine: Yes physical activity: none working smoke detector in home: Yes fire extinguisher in home: No carbon monox detector in home: Yes firearms in home: No do you feel safe at home: Yes victim of physical abuse: No victim of emotional abuse: No victim of sexual abuse: No would you like helpful sources: No ROS Obtained: Yes All systems reviewed & no additional complaints except as documented and Yes Systems reviewed as appropriate & no additional complaints except as documented Constitutional Constitutional: Reports system reviewed and no additional complaints, except as documented, Reports as per HPI, Reports body ache, Reports chills and Reports headache(s) Eyes Eyes: Reports system reviewed and no additional complaints, except as documented and Reports as per HPI ENT Ears, Nose, Mouth, and Throat: Reports system reviewed and no additional complaints, except as documented, Reports as per HPI, Reports headache(s), Reports nasal congestion, Reports nasal discharge and Reports sore throat Cardiovascular Cardiovascular: Reports system reviewed and no additional complaints, except as documented and Reports as per HPI Respiratory Respiratory: Reports system reviewed and no additional complaints, except as documented and Reports as per HPI Gastrointestinal Gastrointestingal: Reports system reviewed and no additional complaints, except as documented, as per HPI and vomiting (once on Tuesday) Neurologic Neurologic: Reports headache(s) Physical Exam General General appearance: alert and in no apparent distress ENT ENT exam: Present mucous membranes moist Expanded ENT Exam Nose exam: Absent sinus tenderness Throat exam: Present other (pharyngeal erythema noted with PND) Respiratory Respiratory exam: Present normal lung sounds bilaterally; Absent respiratory distress or wheezes Cardiovascular Cardiovascular exam: Present regular rate, normal rhythm and normal heart sounds Abdominal Exam Abdominal exam: Present soft and normal bowel sounds; Absent distention or tenderness Neurological Exam Neurological exam: Present alert, oriented X3 and normal gait Medical Decision Making Medical Records Screening: Per USPSTF and CDC recommendations, given the prevalence of disease in our region, it is our hospital?s policy to screen for HIV and viral Hepatitis for all patients aged 18 and over and those with ongoing risk factors. Ben Inquiry Pt receiving controlled substance: No Ben was queried for this patient: No Vital Signs: 01/02/24 13:40 Temperature 98.4 F Temperature Source Oral Pulse Rate [Left Radial] 74 Respiratory Rate 18 Blood Pressure [Left Arm] 134/78 Blood Pressure Mean [Left Arm] 96 02 Sat by Pulse Oximetry 99 Lab Data Lab results reviewed: Yes I reviewed the patient's lab results.
[2024-01-02 13:57] LABS: UTC Influenza A Antigen Negative (Negative); UTC Influenza B Antigen Negative (Negative); UTC Strep Screen (Rapid) Negative (Negative)
[2024-01-02 14:04] VITALS: BP 134/78; PULSE 74; RESP 18; TEMP 36.9
== END 2024-01-02 14:05 | disposition home or self-care (01) ==
PROVIDERS: Emergency Provider Nurse Practitioner; PCP Student in an Organized Health Care Education/Training Program
DX: J06.9 Acute upper respiratory infection, unspecified (principal)
CPT/HCPCS: 87804; 87880; 99213; G0381

== ENCOUNTER 2024-01-05 13:50 | Outpatient (CLI) | payer MEDICAID, SELFPAY | END 2024-01-05 23:59 | disposition home or self-care (01) | LOC: LAB.DROPOF 01-06 08:01 | PROVIDERS: PCP Student in an Organized Health Care Education/Training Program; Visit Provider Student in an Organized Health Care Education/Training Program | DX: R69 Illness, unspecified (principal) | CPT/HCPCS: 87635 ==

== ENCOUNTER 2024-01-24 14:31 | Outpatient (CLI) | payer MEDICAID, SELFPAY ==
--- NOTE | 2024-01-24 14:32 | MM_ITS ---
PROCEDURE INFORMATION: Exam: US Right Breast, Complete US Left Breast, Complete MG Bilateral Screening 3D Mammography Exam date and time: 01/24/2024 2:54 PM Age: 34 years old Clinical indication: Screening exam TECHNIQUE: Imaging protocol: Complete ultrasound of all four quadrants of the right breast and the retroareolar regions, including ultrasound of the axilla when performed. Complete ultrasound of all four quadrants of the left breast and the retroareolar regions, including ultrasound of the axilla when performed. Bilateral Screening tomosynthesis and 2D mammography including computer-aided detection (CAD) when performed. COMPARISON: US BREAST RT COMPLETE 06/24/2022 1:16 PM FINDINGS: MAMMOGRAPHY: Breast composition: There are scattered areas of fibroglandular density. Mass: None. Architectural distortion: None. Calcifications: None. Asymmetric density: None. Skin thickening: None. Axillary adenopathy: None. ULTRASOUND: Right solid masses: None. Right cystic masses: None. Right architectural distortion: None. Right acoustical shadowing: None. Right skin thickening: Sebaceous cyst in the right axilla measuring 0.4 cm Right axillary adenopathy: None. Left solid masses: None. Left cystic masses: Septated cyst in the left breast 10 o'clock axis, 6 cm from the nipple measuring 0.3 x 0.2 x 0.2 cm Left architectural distortion: None. Left acoustical shadowing: None. Left skin thickening: None. Left axillary adenopathy: None. IMPRESSION: No mammographic or sonographic evidence of malignancy. Annual screening is recommended unless otherwise clinically indicated. ASSESSMENT: BI-RADS Category 2: Benign.
== END 2024-01-24 23:59 | disposition home or self-care (01) ==
LOC: RAD 14:32
PROVIDERS: PCP Student in an Organized Health Care Education/Training Program; Visit Provider Student in an Organized Health Care Education/Training Program
DX: R92.8 Other abnormal and inconclusive findings on diagnostic imaging of breast (principal); Z12.31 Encounter for screening mammogram for malignant neoplasm of breast
CPT/HCPCS: 76641; 77063; 77067

== ENCOUNTER 2024-04-26 12:44 | Outpatient (CLI) | payer MEDICAID, SELFPAY ==
--- NOTE | 2024-04-26 13:14 | XR_ITS ---
FINAL REPORT TECHNIQUE: Chest PA & Lateral CLINICAL HISTORY: Other residential (current) drug therapy patient is a smoker patient has hidradenitis suppurativa and is going to start taking a new medication for it. COMPARISON: None FINDINGS: 2 views of the chest were performed. The heart size is normal. The mediastinum is within normal limits. There is no acute cardiopulmonary process. There are no pleural effusions. There is no pneumothorax. The bony thorax appears intact. IMPRESSION: No acute cardiopulmonary process. Reviewed, Interpreted and Dictated by Ruben Gay MD Transcribed by Alondra Johnson Authenticated and [facility]
[2024-04-26 13:21] LABS: Basophils % 0.6 % (0.1-2.0); Eosinophils # 0.1 K/mm3 (0.0-0.4); Eosinophils % 0.9 % (0.1-12.0); Hematocrit 44.4 % (37.0-47.0); Hemoglobin 15.7 g/dL (12.2-16.2); Mean Corpuscular HGB Conc 35.4 g/dL (31.8-35.4); Mean Corpuscular Hemoglobin 33.5 pg (27.0-31.2); Mean Corpuscular Volume 94.7 fl (81-99); Mean Platelet Volume 10.5 fl (7.4-10.4); Monocytes # 0.5 K/mm3 (0.1-1.0); Monocytes % 7.1 % (1.7-9.3); Neutrophils # 3.8 K/mm3 (1.8-7.8); Neutrophils % 59.2 % (37.0-80.0); Platelet Count 243 K/mm3 (142-424); Red Blood Count 4.69 M/mm3 (4.20-5.40); Red Cell Distribution Width 12.2 % (11.5-17.5); White Blood Count 6.4 K/mm3 (4.8-10.8)
[2024-04-26 14:03] LABS: Alanine Aminotransferase 19 U/L (12-78); Albumin Level 4.7 g/dl (3.5-5.0); Alkaline Phosphatase 72 U/L (38-126); Anion Gap 10.8 mEq/L (5-15); Aspartate Amino Transferase 21 U/L (14-36); Bilirubin,Direct 0.3 mg/dl (0.0-0.4); Bilirubin,Indirect 0.1 mg/dL (0.0-0.9); Bilirubin,Total 0.4 mg/dl (0.2-1.3); Bilirubin,Unconjugated 0.1 mg/dL (0.0-1.1); Blood Urea Nitrogen 14 mg/dl (7-17); Carbon Dioxide 25 mmol/L (22.0-30.0); Chloride 108 mmol/L (98-107); Chol/HDL Ratio 3.5 (1-3.5); Cholesterol 203 mg/dl (140-200); Estimated Glomerular Filt Rate 114 ml/min (>60); GFR (African American) 138 ML/MIN (>60); Glucose 99 mg/dl (74-100); HDL Cholesterol 58 mg/dl (40-60); Potassium 3.8 mmoL/L (3.5-5.1); Sodium 140 mmol/L (136-145); Total Protein,Serum 7.1 g/dl (6.3-8.2); Triglycerides 86 mg/dl (30-150); VLDL Cholesterol 17 mg/dL (0-40)
[2024-04-26 14:13] LABS: Direct LDL Cholesterol 107.29 mg/dL (100-129)
[2024-04-27 09:18] LABS: Hepatitis B Core Antibody, IgM Negative (Negative); Hepatitis B Surf Ab Quant 45.2 mIU/mL (Immunity>10); Hepatitis B Surface Antigen Negative (Negative); Hepatitis C Antibody Reactive (Non Reactive)
[2024-04-28 21:34] LABS: QuantiFERON-TB Gold Plus Negative (Negative)
== END 2024-04-26 23:59 | disposition home or self-care (01) ==
LOC: LAB 12:46
PROVIDERS: PCP Internal Medicine; Visit Provider Nurse Practitioner Family
DX: L73.2 Hidradenitis suppurativa (principal); Z79.899 Other long term (current) drug therapy
CPT/HCPCS: 36415; 71046; 80048; 80061; 80076; 85025; 86480; 86705; 86706; 87340; 87380

== ENCOUNTER 2024-09-08 13:49 | Outpatient (CLI) | payer MEDICAID, SELFPAY | END 2024-09-08 23:59 | disposition home or self-care (01) | LOC: LAB.DROPOF 09-10 13:50 | PROVIDERS: PCP Nurse Practitioner Family; Visit Provider Nurse Practitioner Family | DX: N39.0 Urinary tract infection, site not specified (principal) | CPT/HCPCS: 87086 ==